=== PATIENT | female | born 1965 | race Caucasian/White ===

== ENCOUNTER 2024-04-18 08:26 | Emergency (ER) | payer MEDICAID, SELFPAY ==
[2024-04-18] VITALS (9 sets, daily range): BP systolic 116–199; BP diastolic 75–103; PULSE 85–119; RESP 16–28; TEMP 36.5–37.1; O2SAT 96–99; BMI 23.6
--- NOTE | 2024-04-18 08:33 | ECG_ITS ---
APPROVED REPORT Exam: Resting ECG HR:106 bpm ECG Measurements Heart Rate 106 AXES IL 178 P 83 QRSd 98 QRS 79 QT 343 T 72 QTc 405 Conclusion SINUS TACHYCARDIA NONSPECIFIC ST & T-WAVE ABNORMALITY Electronically signed by : ERICA STEVENS, 04/18/2024 16:08:55
--- NOTE | 2024-04-18 08:47 | XR_ITS ---
FINAL REPORT TECHNIQUE: Single view chest CLINICAL HISTORY: SOA, productive cough FINDINGS: A single view of the chest was obtained. The heart and mediastinum are within normal limits. There is calcified granulomatous disease. There is emphysema. The lungs are otherwise clear. There is no pneumothorax. Osseous structures are unremarkable. IMPRESSION: No acute cardiopulmonary process Reviewed, Interpreted and Dictated by Keon Alvarez MD Transcribed by Liss Nichols Authenticated and [facility]
[2024-04-18 08:58] LABS: Basophils % 0.3 % (0.1-2.0); Eosinophils # 0.1 K/mm3 (0.0-0.4); Eosinophils % 0.5 % (0.1-12.0); Hematocrit 46.9 % (37.0-47.0); Hemoglobin 16.3 g/dL (12.2-16.2); Lymphocytes % 6.9 % (10-50); Mean Corpuscular HGB Conc 34.7 g/dL (31.8-35.4); Mean Corpuscular Hemoglobin 29.7 pg (27.0-31.2); Mean Corpuscular Volume 85.6 fl (81-99); Monocytes # 0.5 K/mm3 (0.1-1.0); Monocytes % 3.4 % (1.7-9.3); Neutrophils # 12.4 K/mm3 (1.8-7.8); Neutrophils % 88.9 % (37.0-80.0); Platelet Count 409 K/mm3 (142-424); Red Blood Count 5.48 M/mm3 (4.20-5.40); Red Cell Distribution Width 12.8 % (11.5-17.5); White Blood Count 13.9 K/mm3 (4.8-10.8)
[2024-04-18 08:58] LABS: Coronavirus 19, PCR Not Detected (NotDetected); Influenza A, PCR Not Detected (NotDetected); Influenza B, PCR Not Detected (NotDetected)
[2024-04-18 08:59] LABS: VBG Base Excess -6.6 mmol/L (-2.4-2.3); VBG HCO3 17.5 mmol/L (23-30); VBG Oxygen Saturation 57.3 % (50-70); VBG PH 7.45 mmol/L (7.31-7.41); VBG PO2 25.3 mmol/L (28-40); VBG Total CO2 18.3 mmol/L (23-27)
[2024-04-18 09:00] LABS: MANUAL DIFFERENTIAL MANUAL DIFFERENTIAL (MANUAL DIFF)
[2024-04-18 09:00] LABS: Lactate Venous 3.6 mmol/L (0.4-2.0)
[2024-04-18 09:05] LABS: Albumin Level 5.1 g/dl (3.5-5.0); Chloride 98 mmol/L (98-107); Potassium 3.2 mmoL/L (3.5-5.1); Sodium 131 mmol/L (136-145)
[2024-04-18 09:06] LABS: Activated Partial Thrombo Time 28.7 seconds (22.8-30.6); INR 0.98 (0.9-1.1)
[2024-04-18 09:08] LABS: Alanine Aminotransferase 33 U/L (12-78); Albumin/Globulin Ratio 1.2 (1.1-1.8); Alkaline Phosphatase 149 U/L (38-126); Anion Gap 21.2 mEq/L (5-15); Aspartate Amino Transferase 29 U/L (14-36); Bilirubin,Total 1.4 mg/dl (0.2-1.3); Blood Urea Nitrogen 11 mg/dl (7-17); Calcium 10.4 mg/dl (8.4-10.2); Carbon Dioxide 15 mmol/L (22.0-30.0); Creatinine Clearance Estimated 100 mL/min (50-200); Estimated Glomerular Filt Rate 86 ml/min (>60); GFR (African American) 104 ML/MIN (>60); Globulin 4.3 g/dL (1.3-3.2); Glucose 217 mg/dl (74-100); Lipase 69 U/L (23-300); Total Protein,Serum 9.4 g/dl (6.3-8.2)
--- NOTE | 2024-04-18 09:12 | HMH.EDGENADL ---
Discharge Plan Disposition Patient Disposition: Home, Self-Care Prescriptions Prescriptions: New amoxicillin-pot clavulanate 875-125 mg tablet 1 tab PO BID 7 Days Qty: 14 0RF azithromycin 500 mg tablet 500 mg PO DAILY 2 Days Qty: 2 0RF Rx Instructions: start on day 2 of therapy ondansetron 4 mg tablet,disintegrating 4 mg PO Q6H PRN (Reason: nausea and vomiting) Qty: 10 0RF Referrals Follow up/Referrals: Provider,Referral, MD [Primary Care Provider] - See instructions Activity Restrictions/Add. Instructions Additional Instructions/Restrictions: Call your family doctor to establish care for this visit to the emergency department and schedule follow-up within 48 hours to ensure improvement. If you have any worsening of your condition or any other concerning signs or symptoms, return to the emergency department or your primary care doctor for further evaluation. If you are unable to tolerate any oral intake, appear to be getting worse, feel that you are having reactions to any medications, or have any worsening, return to the emergency department and we will take care of you. Augmentin twice daily for 7 days, azithromycin each morning for the next 2 days. Zofran as needed for nausea Clinical Impressions Clinical Impression: Pneumonia, Vomiting Print Language Print Language: Sammarinese Discharge ED Provider: Elmer Wesley General Adult HPI General Chief complaint: PAIN Stated complaint: Pain in Right shoulder down right side Time Seen by Provider: 04/18/24 08:39 Mode of Arrival: Wheelchair Source of Information: Patient Limitations: No Limitations Description of Symptoms (Recalled from ER Triage Doc. by RN): pt presents to ED with c/o head/chest congestion. pt reports left shoulder pain radiating down to hip. pt reports that pain woke her from her sleep. chest pain this am around 0700. chest congestion ongoing for the past 9 days History of Present Illness HPI narrative: Please note that above description of symptoms, in this electronic medical record under categorization of recalled from ER triage doctor by RN are reflective of an initial nursing assessment, however, is not reflective of my full history and physical exam that was personally taken and clarified. Consequentially, this preceding description of symptoms, which may include the patient's categorized chief complaint in the EMR, do not reflect my personal clinical impression, and the ultimate description of history of present illness and patient stated complaints should be deferred to this section of the note. Unless stated otherwise or congruent with this section of the note, additional signs, symptoms, or incongruence should be interpreted as inaccurate with my clinical impression. Related Data Previous Rx's ?Medication ?Instructions ?Recorded amoxicillin 875 mg-potassium 1 tab PO BID 7 days #14 tabs 04/18/24 clavulanate 125 mg tablet azithromycin 500 mg tablet 500 mg PO DAILY 2 days #2 tabs 04/18/24 ondansetron 4 mg disintegrating 4 mg PO Q6H PRN nausea and 04/18/24 tablet vomiting #10 tabs Allergies Allergy/AdvReac Type Severity Reaction Status Date / Time sumatriptan (From Imitrex) Allergy Severe Anaphylaxis Verified 04/18/24 08:41 wheat Allergy Severe Anaphylaxis Verified 04/18/24 08:41 ibuprofen Allergy Intermediate Verified 04/18/24 08:41 [facility] Disclaimer: The information contained in this section may have been updated after the patient was seen, as this information can be updated by other users. Social History Smoking Status: Never smoker alcohol intake: never current occupational status: retired Travel in the last 8 weeks: None ROS Obtained: Yes All systems reviewed & no additional complaints except as documented Physical Exam General General appearance: alert and anxious Head Head exam: atraumatic and normocephalic Eye Eye exam: Present normal appearance, PERRL and EOMI ENT ENT exam: Present mucous membranes dry Neck Neck exam: Present normal inspection, full ROM and trachea midline Respiratory Respiratory exam: Present wheezes (Isolated posterior wheezes left lower lung wells); Absent respiratory distress, stridor, accessory muscle use or prolonged expiratory phase Cardiovascular Cardiovascular exam: Present regular rate, tachycardia, normal heart sounds and other (Pulses equal symmetric in upper and lower extremities) Abdominal Exam Abdominal exam: Present soft; Absent distention, tenderness or pulsatile mass Extremities Exam Extremities exam: Absent edema Neurological Exam Neurological exam: Present alert, oriented X3, CN II-XII intact and normal gait; Absent motor sensory deficit Skin Skin exam: Present warm and dry; Absent diaphoresis or erythema Medical Decision Making Medical Records Medical records reviewed: Yes I reviewed the patient's medical records. Screening: Per USPSTF and CDC recommendations, given the prevalence of disease in our region, it is our hospital?s policy to screen for HIV and viral Hepatitis for all patients aged 18 and over and those with ongoing risk factors. Tatila Inquiry Pt receiving controlled substance: No Attila was queried for this patient: No Vital Signs: 04/18/24 08:27 04/18/24 08:31 04/18/24 10:27 Temperature 97.7 F Temperature Source Oral Pulse Rate 113 H Pulse Rate [Left Radial] 105 H Respiratory Rate 16 25 H Blood Pressure 199/103 H 196/85 H Blood Pressure [Right Arm] 199/103 H Blood Pressure Mean [Right Arm] 135 02 Sat by Pulse Oximetry 99 98 98 Oxygen Delivery Method Room Air Room Air Room Air 04/18/24 10:30 04/18/24 11:00 04/18/24 11:30 Temperature Temperature Source Pulse Rate Pulse Rate [Left Radial] Respiratory Rate 22 23 17 Blood Pressure 198/91 H 179/87 H 180/90 H Blood Pressure [Right Arm] Blood Pressure Mean [Right Arm] 02 Sat by Pulse Oximetry Oxygen Delivery Method 04/18/24 12:00 04/18/24 12:15 Temperature Temperature Source Pulse Rate 102 H 119 H Pulse Rate [Left Radial] Respiratory Rate 20 28 H Blood Pressure 188/93 H 188/93 H Blood Pressure [Right Arm] Blood Pressure Mean [Right Arm] 02 Sat by Pulse Oximetry 98 Oxygen Delivery Method Lab Data Lab Results 04/18/24 08:43: WBC 13.9 H, RBC 5.48 H, Hgb 16.3 H, Hct 46.9, MCV 85.6, MCH 29.7, MCHC 34.7, RDW 12.8, Plt Count 409, MPV 7.0 L, Neut % (Auto) 88.9 H, Lymph % (Auto) 6.9 L, [place] % (Auto) 3.4, Eos % (Auto) 0.5, Baso % (Auto) 0.3, Neut # (Auto) 12.4 H, Lymph # (Auto) 1.0, [place] # (Auto) 0.5, Eos # (Auto) 0.1, Baso # (Auto) 0.0, Total Counted 100, Neutrophils % (Manual) 84 H, Lymphocytes % (Manual) 14, Monocytes % (Manual) 2, Platelet Estimate Normal, RBC Morphology Normal, PT 11.0, INR 0.98, APTT 28.7, D-Dimer 0.57 H, Sodium 131 L, Potassium 3.2 L, Chloride 98, Carbon Dioxide 15 L, Anion Gap 21.2 H, BUN 11, Creatinine 0.70, Estimated Creat Clear 100, Estimated GFR 86, Est GFR ( Amer) 104, Glucose 217 H, Calcium 10.4 H, Total Bilirubin 1.4 H, AST 29, ALT 33, Alkaline Phosphatase 149 H, Troponin I < 0.01, Total Protein 9.4 H, Albumin 5.1 H, Globulin 4.3 H, Albumin/Globulin Ratio 1.2, Lipase 69 04/18/24 08:51: VBG pH 7.45 H, VBG pCO2 26.0 L, VBG pO2 25.3 L, VBG HCO3 17.5 L, VBG Total CO2 18.3 L, VBG O2 Saturation 57.3, VBG Base Excess -6.6 L, VBG Lactic Acid 3.6 H 04/18/24 08:53: SARS-CoV-2 (PCR) Not detected, Influenza A Untype (PCR) Not detected, Influenza Type B (PCR) Not detected 04/18/24 09:09: Urine Color Dark yellow, Urine Appearance Slightly cloudy, Urine pH 6.0, Ur Specific [place] >= 1.030, Urine Protein 1+ A, Urine Glucose (UA) Trace, Urine Ketones 3+, Urine Blood Negative, Urine Nitrate Negative, Urine Bilirubin Negative, Urine Urobilinogen 0.2, Ur Leukocyte Esterase Negative, Urine RBC None, Urine WBC Occasional, Ur Squamous Epith Cells 3-5, Urine Bacteria Trace 04/18/24 08:43 04/18/24 08:43 Orders (Tests/Meds): ED MEDICATIONS Discontinued Medications Generic Name Dose Route Start Last Admin Trade Name Freq PRN Reason Stop Dose Admin Amoxicillin/Clavulanate Potassium 1 each 04/18/24 09:56 04/18/24 10:07 Amoxicillin/Clavulanate Potassium 875/125mg Tablet PO 04/18/24 09:57 1 each ONCE ONE Administration Azithromycin 500 mg 04/18/24 09:56 04/18/24 10:07 Azithromycin 250mg Tablet PO 04/18/24 09:57 500 mg ONCE ONE Administration Lactated Ringer's 1,000 mls @ 999 mls/hr 04/18/24 09:06 04/18/24 09:21 Lactated Ringer's 1000 Ml Bag IV 04/18/24 10:06 999 mls/hr .Q1H1M ONE Administration Lactated Ringer's 1,000 mls @ 999 mls/hr 04/18/24 10:52 04/18/24 10:57 Lactated Ringer's 1000 Ml Bag IV 04/18/24 11:52 999 mls/hr .Q1H1M ONE Administration Ondansetron HCl 4 mg 04/18/24 09:25 04/18/24 09:26 Ondansetron 4mg/2ml Vial IV 04/18/24 09:26 4 mg ONCE ONE Administration Ondansetron HCl 4 mg 04/18/24 11:47 04/18/24 11:52 Ondansetron 4mg/2ml Vial IV 04/18/24 11:48 4 mg ONCE ONE Administration ORDERS Category Date Time Status POCUS Point of Care (ER Only) Stat Exams 04/18/24 08:47 Completed XR chest portable Stat Exams 04/18/24 08:47 Completed Complete Blood Count Auto Diff Stat Lab 04/18/24 08:43 Completed Comprehensive Metabolic Panel Stat Lab 04/18/24 08:43 Completed D-Dimer Stat Lab 04/18/24 08:43 Completed Lipase Stat Lab 04/18/24 08:43 Completed PT INR [Prothrombin Time INR] Stat Lab 04/18/24 08:43 Completed PTT [Activated Partial Thrombo Time] Stat Lab 04/18/24 08:43 Completed Rapid PCR Covid and Flu A/B Stat Lab 04/18/24 08:53 Completed Troponin I Q3H Lab 04/18/24 12:00 Ordered Troponin I Q3H Lab 04/18/24 15:00 Ordered Troponin I Stat Lab 04/18/24 08:43 Completed UA [Urinalysis and Microscopic] Stat Lab 04/18/24 09:09 Completed Blood Culture Stat Micro 04/18/24 09:37 Received Venous Blood Gas Stat RT 04/18/24 08:51 Completed Medical Decision Narrative: 58-year-old female with no diagnosed medical problems (also does not have or see a family physician) presenting with multiple complaints. Patient states that she has been sick for about a week with cough. Cough intermittently productive of clear to white sputum. Fevers and chills, body aches. Also having left shoulder pain. Left shoulder pain started this morning, does not radiate, mild in intensity. Patient states that she is having shortness of breath as well, shoulder pain getting worse with deep inspiration. Intermittently vomiting in response to p.o. intake. No diarrhea. No blood in her vomit, nonbilious. 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 Also has side complaint of intermittent dysuria. History was obtained via conversation with patient. On arrival, patient hemodynamically stable, alert, oriented x4, appropriate, GCS 15, moving all extremities spontaneously, pupils equal and reactive to light. Full physical exam performed and significant for fatigued appearing female no acute distress. Mildly anxious. Tachycardic, heart sounds otherwise normal with normal S1-S2 no murmurs gallops or rubs. Lungs are clear to auscultation anteriorly bilaterally, but she has isolated wheezes and inferior breath sounds on the left posteriorly. Abdomen soft, nontender, nondistended. Patient has dry mucous membranes. Differential includes bronchitis, pneumonia, pneumothorax, cystitis, pyelonephritis, pancreatitis, ACS, [place], among others. Patient placed on continuous cardiac monitoring and continuous pulse ox with initial blood pressure 199/103, heart rate 105, saturation 99% on room air. Independent interpretation of EKG shows sinus tachycardia 106 bpm. Patient does have ME downsloping and ST depressions in septal/lateral leads as well as inferior leads with no reciprocal elevations. ME 178, QRS 98, QTc 405 with normal axis. Patient was given 1 L LR for symptomatic management and correction of underlying abnormalities. Workup independently interpreted and significant for leukocytosis 14,000 with neutrophilia. Coags normal. Patient's D-dimer mildly elevated, but years criteria negative. VBG with pH 7.45/CO2 26/bicarb 17 and lactate elevated 3.6. Sodium 131, potassium 3.2 (patient declined repletion given numerous allergies), normal kidney function. Troponin negative. Lipase negative. Urinalysis with ketonuria concerning for severe dehydration. On independent interpretation of imaging, patient has left lower lobe opacities concerning for developing pneumonia. See radiology read for full review of final results. Given Augmentin and azithromycin p.o. in the emergency department, as patient wanted to be monitored after receiving these due to numerous allergies. Another liter of LR also administered. Patient was placed in observation beginning at 10 AM in order to give meds, observe and determine need for admission versus home-going. The patient was provided second liter of crystalloid, Augmentin, azithromycin while awaiting results. On reevaluation, patient nauseated and vomiting, Zofran was added. Prolonged discussion had with patient and family regarding admission versus home-going, ultimately opted for home-going and I feel this is appropriate. Total observation time 2 hours. On reevaluation, patient still resting comfortably, feels a lot better after fluids and clinically looks much better. Tissue perfusion reassessment performed within 3 hours, patient mentating, following commands, good capillary refill and hemodynamically stable. Remains similar to baseline arrival. Bedside [id number] ultrasound performed no acute cardiac abnormalities, no pericardial effusion with grossly normal activity. Given patient presentation, workup, history, this most likely represents pneumonia. Because patient at baseline without signs or symptoms of clinical decompensation, deemed appropriate for discharge. Results were relayed to patient who voiced understanding and were agreeable to outpatient management and follow up. I discussed my clinical impression with patient and answered all questions. At this time, the evidence for any other entities in the differential is insufficient to warrant any further testing or ED observation. This was explained as well. Advisory was given that persistent or worsening symptoms require further evaluation. I confirmed the understanding of this discussion. Nocturnist disclaimer Much of this encounter note is an electronic support services tech spoken language to printed text. Electronic support services tech of the spoken language may permit errors. Although I have reviewed the note, some errors may still exist. Critical Care Critical Care Time Critical Care Time: No
[2024-04-18 09:16] LABS: Microscopic, Urine URINE MICROSCOPIC (MICROSCOPIC)
[2024-04-18 09:19] LABS: Blood, Urine Negative (Negative); Glucose,Urine (UA) TRACE (Negative); Ketones,Urine 3+ (Negative); Leukocyte Esterase,Urine Negative (Negative); Nitrate,Urine Negative (Negative); Protein,Urine 1+ (Negative); Specific Gravity, Urine >= 1.030 (1.005-1.030); Urobilinogen,Urine 0.2 EU/dl (0.2)
[2024-04-18 09:20] LABS: Troponin I < 0.01 ng/ml (0.00-0.034)
[2024-04-18 09:21] LABS: Appearance,Urine Slightly Cloudy (Clear); Bilirubin,Urine Negative (Negative); Color,Urine Dark Yellow (Yellow)
[2024-04-18] MEDS: LACTATED RINGERS 1000ML 1,000 ML 999 ML IV ×2 (09:21→10:57)
[2024-04-18] MEDS: ONDANSETRON 4MG/2ML VIAL 4 MG IV ×2 (09:26→11:52)
[2024-04-18 09:28] LABS: Lymphocytes % 14 % (10-50); Monocytes % 2 % (2-9); Neutrophils % 84 % (42-76); Platelet Estimate Normal; RBC Morphology Normal; Total Cells Counted 100
[2024-04-18 09:34] LABS: Bacteria,Urine Trace /lpf; WBC,Urine Occasional #/hpf (0-3)
[2024-04-18 09:38] LABS: D-Dimer 0.57 ug/mL (0.0-0.5)
[2024-04-18] MEDS: AMOXICILLIN/CLAVULANATE POTASSIUM 875/125MG TABLET 1 EACH PO (10:07)
[2024-04-18] MEDS: AZITHROMYCIN 250MG TABLET 500 MG PO (10:07)
--- NOTE | 2024-04-18 11:59 | PC.NURSE ---
I rounded on the pt, IVF still infusing. no new complaints, call mayo in reach.
[2024-04-18 13:00] LABS: Reflex Lactic Add Lactic Reflex
[2024-04-18 13:11] LABS: Troponin I < 0.01 ng/ml (0.00-0.034)
== END 2024-04-18 12:58 | disposition home or self-care (01) ==
PROVIDERS: Emergency Provider Emergency Medicine
DX: J18.9 Pneumonia, unspecified organism (principal); R11.10 Vomiting, unspecified; M25.512 Pain in left shoulder; M25.552 Pain in left hip; R07.9 Chest pain, unspecified; R09.89 Other specified symptoms and signs involving the circulatory and respiratory systems; R09.81 Nasal congestion
CPT/HCPCS: 71045; 80053; 81001; 82803; 83690; 84484; 85007; 85025; 85027; 85378; 85610; 85730; 87040; 87636; 93005; 96361; 96374; 96375; 99284; J2405; J7120

== ENCOUNTER 2024-04-19 17:59 | Observation (INO) | payer MEDICAID, SELFPAY ==
[2024-04-19] VITALS (11 sets, daily range): BP systolic 173–230; BP diastolic 80–103; PULSE 76–104; RESP 15–24; TEMP 36.4–36.9; O2SAT 97–99; BMI 23.6; BMI 19.9
--- NOTE | 2024-04-19 18:12 | ECG_ITS ---
APPROVED REPORT Exam: Resting ECG HR:91 bpm ECG Measurements Heart Rate 91 AXES MD 198 P 67 QRSd 94 QRS 45 QT 379 T 50 QTc 428 Conclusion SINUS RHYTHM MODERATE ST DEPRESSION Electronically signed by : ERICA STEVENS, 04/19/2024 23:56:40
--- NOTE | 2024-04-19 18:22 | CT_ITS ---
PROCEDURE INFORMATION: Exam: CTA Chest With Contrast Exam date and time: 04/19/2024 7:09 PM Age: 58 years old Clinical indication: Other: Respirophasic cp, vomiting diarrhea TECHNIQUE: Imaging protocol: Computed tomographic angiography of the chest with contrast. Exam focused on the arteries. 3D rendering (Not supervised by radiologist): MIP and/or 3D reconstructed images were created by the technologist. Radiation optimization: All CT scans at this facility use at least one of these dose optimization techniques: automated exposure control; mA and/or kV adjustment per patient size (includes targeted exams where dose is matched to clinical indication); or iterative reconstruction. Contrast material: ISOVUE 370; Contrast volume: 80 ml; Contrast route: INTRAVENOUS (IV); COMPARISON: CT ANGIO CHEST PE PROTOCOL 04/19/2024 7:09 PM FINDINGS: Pulmonary arteries: Normal. No pulmonary emboli. Aorta: Unremarkable. No aortic aneurysm. No aortic dissection. Lungs: Poorly defined left posterobasilar opacity. Poorly defined right mid basilar opacity. Underlying centrilobular emphysematous changes. Benign right upper lobar calcified granuloma. Pleural spaces: Unremarkable. No pneumothorax. No pleural effusion. Heart: Unremarkable. No cardiomegaly. No pericardial effusion. Lymph nodes: Unremarkable. No enlarged lymph nodes. Bones/joints: Unremarkable. No acute fracture. Soft tissues: Unremarkable. IMPRESSION: 1. No central or segmental pulmonary arterial embolism identified. 2. Bibasilar, likely infectious/inflammatory infiltration. COMMENTS: The presence of pulmonary emphysema on CT is an independent risk factor for lung cancer. In the absence of a history or active diagnosis of lung cancer, it is recommended that this patient with emphysema be evaluated for enrollment in a low dose CT lung cancer screening program.
--- NOTE | 2024-04-19 18:23 | CT_ITS ---
PROCEDURE INFORMATION: Exam: CTA Abdomen and Pelvis With Contrast Exam date and time: 04/19/2024 7:09 PM Age: 58 years old Clinical indication: Other: Intractable n/v hematemesis TECHNIQUE: Imaging protocol: Computed tomographic angiography of the abdomen and pelvis with contrast. Exam focused on the arteries. 3D rendering (Not supervised by radiologist): MIP and/or 3D reconstructed images were created by the technologist. Radiation optimization: All CT scans at this facility use at least one of these dose optimization techniques: automated exposure control; mA and/or kV adjustment per patient size (includes targeted exams where dose is matched to clinical indication); or iterative reconstruction. Contrast material: ISO 370; Contrast volume: 80 ml; Contrast route: INTRAVENOUS (IV); COMPARISON: CT ANGIO CHEST PE PROTOCOL 04/19/2024 7:09 PM FINDINGS: Aorta: No aortic aneurysm. No aortic dissection. Atherosclerotic calcification. Celiac trunk and mesenteric arteries: No occlusion or significant stenosis. Ostial atherosclerotic calcification. Renal arteries: No occlusion or significant stenosis. Ostial atherosclerotic calcification. Right iliac arteries: No occlusion or significant stenosis. Atherosclerotic calcification. Left iliac arteries: No occlusion or significant stenosis. Ostial atherosclerotic calcification. Liver: Fatty infiltration. No mass. Gallbladder and biliary ducts: Unremarkable. No calcified stones. No ductal dilation. Pancreas: Unremarkable. No mass. No ductal dilation. Spleen: Unremarkable. No splenomegaly. Adrenal glands: Unremarkable. No mass. Kidneys and ureters: Stable bilateral cortical cysts including probable stable hyperdense cysts measuring 1.8 and 2.5 cm in left kidney. No solid mass. No hydronephrosis. Stomach and bowel: Unremarkable. No obstruction. No mucosal thickening. Appendix: No evidence of appendicitis. Intraperitoneal space: Unremarkable. No free air. No significant fluid collection. Lymph nodes: Unremarkable. No enlarged lymph nodes. Urinary bladder: Unremarkable. No mass. Reproductive: Unremarkable as visualized. Bones/joints: No acute fracture. Soft tissues: Unremarkable. IMPRESSION: 1. Unremarkable CTA. 2. Fatty liver infiltration. 3. Similar probable left renal hyperdense cysts. Can be evaluated with nonurgent ultrasound.
--- NOTE | 2024-04-19 18:25 | HMH.EDCP ---
Discharge Plan Disposition Patient Disposition: Admitted Clinical Impressions Clinical Impression: Nausea & vomiting, Sepsis, Hypokalemia Discharge ED Provider: Elmer Wesley General Chief Complaint: Shortness of Breath/Dyspnea Stated Complaint: soa Time Seen by Provider: 04/19/24 18:04 Mode of Arrival: Ambulatory Source of Information: Patient Limitations: No Limitations Description of Symptoms (Recalled from ER Triage Doc. by RN): n/v SOB left ear pain back pain with deep breathing History of Present Illness HPI narrative: Please note that above description of symptoms, in this electronic medical record under categorization of recalled from ER triage doctor by RN are reflective of an initial nursing assessment, however, is not reflective of my full history and physical exam that was personally taken and clarified. Consequentially, this preceding description of symptoms, which may include the patient's categorized chief complaint in the EMR, do not reflect my personal clinical impression, and the ultimate description of history of present illness and patient stated complaints should be deferred to this section of the note. Unless stated otherwise or congruent with this section of the note, additional signs, symptoms, or incongruence should be interpreted as inaccurate with my clinical impression. Related Data Previous Rx's ?Medication ?Instructions ?Recorded amoxicillin 875 mg-potassium 1 tab PO BID 7 days #14 tabs 04/18/24 clavulanate 125 mg tablet azithromycin 500 mg tablet 500 mg PO DAILY 2 days #2 tabs 04/18/24 ondansetron 4 mg disintegrating 4 mg PO Q6H PRN nausea and 04/18/24 tablet vomiting #10 tabs Allergies Allergy/AdvReac Type Severity Reaction Status Date / Time sumatriptan (From Imitrex) Allergy Severe Anaphylaxis Verified 04/18/24 08:41 wheat Allergy Severe Anaphylaxis Verified 04/18/24 08:41 ibuprofen Allergy Intermediate Verified 04/18/24 08:41 [facility] PFS Disclaimer: The information contained in this section may have been updated after the patient was seen, as this information can be updated by other users. Social History (Updated 04/18/24 @ 12:41 by Elmer Wesley MD) Smoking Status: Never smoker alcohol intake: never current occupational status: retired Travel in the last 8 weeks: None Have you lived/traveled outside [place] in past 30 days?: No Contact w/someone who lives/traveled outside US past 30 days?: No Exposure to someone with infectious disease in past 14 days?: No Do you have a fever (greater than 100.4 F or 38 C)?: No Have you tested positive for COVID-19: No Exposed to someone with COVID-19 in past 14 days?: No Do you have a sore throat?: No Do you have a cough?: No Do you have any weakness?: No Do you have any diarrhea?: No Are you experiencing any unusual bleeding?: No Do you have any muscle aches/pain?: No Do you have any abdominal pain?: No Are you experiencing loss of taste or smell?: No ROS Obtained: Yes All systems reviewed & no additional complaints except as documented Physical Exam General General appearance: alert Neck Neck exam: Present trachea midline Chest Chest inspection: Present normal inspection and symmetric chest wall rise Respiratory Respiratory exam: Present normal lung sounds bilaterally; Absent respiratory distress, wheezes, stridor, accessory muscle use or prolonged expiratory phase Cardiovascular Cardiovascular exam: Present regular rate, normal rhythm and other (Pulses equal and symmetric in upper and lower extremities) Extremities Exam Extremities exam: Absent edema Neurological Exam Neurological exam: Present alert, oriented X3 and CN II-XII intact Skin Skin exam: Present warm and dry; Absent cyanosis, diaphoresis or pallor HEART Score HEART Score HEART Score assessment performed?: Yes HEART Score: 2 Critical Care Critical Care Time Critical Care Time: Yes (ID) Attestation: On 04/19/24, the high probability of a clinically significant, sudden or life threatening deterioration of the following system(s) required my full and direct attention, intervention and personal management. The time I documented below is in addition to time spent performing reported procedures but includes the following listed in this critical care notation. Total Time Total Critical Care Time: 45 Medical Decision Making Medical Records Medical records reviewed: Yes I reviewed the patient's medical records. Attila Inquiry Pt receiving controlled substance: No Attila was queried for this patient: No Vital Signs Vital Signs: 04/19/24 18:12 04/19/24 18:30 04/19/24 18:41 Temperature 97.6 F Temperature Source Oral Pulse Rate 82 78 Pulse Rate [Right Radial] 104 H Respiratory Rate 18 Blood Pressure 229/97 H 208/89 H Blood Pressure [Right Arm] 191/96 H Blood Pressure Mean [Right Arm] 127 Blood Pressure Source Blood Pressure Position 02 Sat by Pulse Oximetry 97 99 99 Oxygen Delivery Method Room Air Room Air Room Air 04/19/24 19:20 04/19/24 19:31 04/19/24 19:56 Temperature Temperature Source Pulse Rate 103 H 94 H 76 Pulse Rate [Right Radial] Respiratory Rate Blood Pressure 223/100 H 230/103 H 212/97 H Blood Pressure [Right Arm] Blood Pressure Mean [Right Arm] Blood Pressure Source Blood Pressure Position 02 Sat by Pulse Oximetry 97 98 98 Oxygen Delivery Method 04/19/24 20:00 04/19/24 20:45 04/19/24 21:30 Temperature Temperature Source Pulse Rate 96 H 90 Pulse Rate [Right Radial] Respiratory Rate 18 20 15 Blood Pressure 208/93 H 207/102 H 188/90 H Blood Pressure [Right Arm] Blood Pressure Mean [Right Arm] Blood Pressure Source Blood Pressure Position 02 Sat by Pulse Oximetry 98 99 Oxygen Delivery Method 04/19/24 21:53 Temperature 97.9 F Temperature Source Oral Pulse Rate 90 Pulse Rate [Right Radial] Respiratory Rate 16 Blood Pressure 188/90 H Blood Pressure [Right Arm] Blood Pressure Mean [Right Arm] Blood Pressure Source Automatic Cuff Blood Pressure Position Supine 02 Sat by Pulse Oximetry Oxygen Delivery Method Room Air Lab Data Labs: Lab Results 04/19/24 18:08: WBC 16.7 H, RBC 5.13, Hgb 15.2, Hct 43.4, MCV 84.6, MCH 29.6, MCHC 35.0, RDW 11.6, Plt Count 491 H, MPV 8.9, Neut % (Auto) 85.2 H, Lymph % (Auto) 8.1 L, Whitman % (Auto) 5.4, Eos % (Auto) 0.1, Baso % (Auto) 0.5, Neut # (Auto) 14.2 H, Lymph # (Auto) 1.4, Whitman # (Auto) 0.9, Eos # (Auto) 0.0, Baso # (Auto) 0.1, Total Counted 100, Neutrophils % (Manual) 84 H, Band Neutrophils % 1.0, Lymphocytes % (Manual) 10, Monocytes % (Manual) 5, Platelet Estimate Slight increase, RBC Morphology Normal, PT 11.2, INR 1.00, APTT 27.6, Sodium 136, Potassium 3.0 L, Chloride 100, Carbon Dioxide 17 L, Anion Gap 22.0 H, BUN 13, Creatinine 0.70, Estimated Creat Clear 100, Estimated GFR 86, Est GFR ( Amer) 104, Glucose 207 H, Lactate 3.3 H, Calcium 10.6 H, Magnesium 2.4 H, Total Bilirubin 0.8, AST 30, ALT 37, Alkaline Phosphatase 154 H, Troponin I < 0.01, Total Protein 8.7 H, Albumin 4.7, Globulin 4.0 H, Albumin/Globulin Ratio 1.2, Lipase 62 04/19/24 18:08 04/19/24 18:08 Response Orders (Tests/Meds): ED MEDICATIONS Generic Name Dose Route Start Last Admin Trade Name Freq PRN Reason Stop Dose Admin Potassium Chloride/Water 100 mls @ 100 mls/hr 04/19/24 19:45 04/19/24 20:51 Potassium Chloride 10meq/100ml Ivpb IV 04/19/24 22:44 100 mls/hr Q1H DAHIANA Administration Sodium Chloride 1,000 mls @ 50 mls/hr 04/19/24 20:00 04/19/24 19:53 Sod Chlor 0.9% 1000ml Bag IV 05/19/24 19:59 50 mls/hr .Q20H DAHIANA Administration Ceftriaxone Sodium 2 gm/ 100 mls @ 200 mls/hr 04/19/24 21:34 Sodium Chloride IV 04/19/24 22:03 ONCE ONE Discontinued Medications Generic Name Dose Route Start Last Admin Trade Name Freq PRN Reason Stop Dose Admin Hydralazine HCl 10 mg 04/19/24 20:09 04/19/24 20:34 Hydralazine 20mg/Ml Vial IV 04/19/24 20:10 10 mg ONCE ONE Administration Sodium Chloride 1,000 mls @ 999 mls/hr 04/19/24 18:22 04/19/24 18:32 Sod Chlor 0.9% 1000ml Bag IV 04/19/24 19:22 999 mls/hr .Q1H1M ONE Administration Iopamidol 80 ml 04/19/24 19:09 04/19/24 19:10 Iopamidol-370 (76%);100ml Bottle IV 04/19/24 19:10 80 ml ONCE ONE Administration Metoprolol Tartrate 5 mg 04/19/24 19:24 04/19/24 19:31 Metoprolol Tartrate 5mg/5ml Vial IV 04/19/24 19:25 5 mg ONCE ONE Administration Promethazine HCl 12.5 mg 04/19/24 18:22 04/19/24 18:33 Promethazine Hcl 25mg/Ml 1ml Vial IV 04/19/24 18:23 12.5 mg ONCE ONE Administration Promethazine HCl 12.5 mg 04/19/24 20:08 04/19/24 20:10 Promethazine Hcl 25mg/Ml 1ml Vial IV 04/19/24 20:09 12.5 mg ONCE ONE Administration Sodium Chloride 25 ml 04/19/24 18:22 04/19/24 18:32 Sodium Chloride 0.9% 25ml Bag IV 04/19/24 18:23 25 ml ONCE ONE Administration Sodium Chloride 50 ml 04/19/24 19:09 04/19/24 19:10 0.9 % Sodium Chloride 50 Ml Vial IV 04/19/24 19:10 50 ml ONCE ONE Administration Sodium Chloride 10 ml 04/19/24 19:09 04/19/24 19:10 Sodium Chloride 0.9% 10ml Syr (Rad Only) IV 04/19/24 19:10 10 ml ONCE ONE Administration Sodium Chloride 25 ml 04/19/24 20:08 04/19/24 20:09 Sodium Chloride 0.9% 25ml Bag IV 04/19/24 20:09 25 ml ONCE ONE Administration ORDERS Category Date Time Status CT angio abdomen pelvis Stat Cat Scan 04/19/24 18:[address] angio chest PE protocol Stat Cat Scan 04/19/24 18:22 Completed Complete Blood Count Auto Diff Stat Lab 04/19/24 18:08 Completed Comprehensive Metabolic Panel Stat Lab 04/19/24 18:08 Completed Diarrhea 6-11 Panel, Cdiff PCR Stat Lab 04/19/24 19:41 Ordered Lactic Acid Stat Lab 04/19/24 18:08 Completed Lipase Stat Lab 04/19/24 18:08 Completed Magnesium Stat Lab 04/19/24 18:08 Completed PT INR [Prothrombin Time INR] Stat Lab 04/19/24 18:08 Completed PTT [Activated Partial Thrombo Time] Stat Lab 04/19/24 18:08 Completed Troponin I Q3H Lab 04/19/24 21:30 Ordered Troponin I Q3H Lab 04/20/24 00:30 Ordered Troponin I Stat Lab 04/19/24 18:08 Completed MDM Narrative Medical Decision Narrative: 58-year-old female who was just here yesterday. No reported medical history, states that she has been sick for about a week plus with nonproductive cough. Came in to see me yesterday on 04/18. At that time, workup significant for developing left lower lobe opacity consistent with pneumonia and patient was trialed on oral antibiotics prior to being sent home and given fluids. Patient states that she went home, was initially feeling a little better, but has not been able to tolerate any p.o. intake since shortly after returning home. Feeling worse, intermittently having abdominal cramping, vomiting and diarrhea. Vomiting diarrhea mostly associated with trying to take p.o. intake whether liquid or solid. States that is nonbilious, but intermittently bloody with dark red blood. No blood in her stool. States that she is no longer having left-sided chest/shoulder pain, but is now having bilateral posterior upper back pain that does not radiate and is respirophasic, made worse with deep breaths. No syncope, neurologic deficits, headache, vision changes, or any other concerning history. States she has not been able to tolerate any p.o. intake including antibiotics, so came in for probable admission. History was obtained via conversation with patient. On arrival, patient hemodynamically stable, alert, oriented x4, appropriate, GCS 15, moving all extremities spontaneously, pupils equal and reactive to light. Full physical exam performed and significant for uncomfortable appearing female no acute distress. Lungs are clear bilaterally. Cardiac exam normal. Nontachycardic on my exam. Abdomen soft, nontender, nondistended. No overlying skin changes. Patient nontachypneic and fatigued, but otherwise is well-appearing. Differential includes pneumonia, bronchitis, gastroenteritis, medication intolerance, pancreatitis, ACS, FL, dissection, PE, pneumothorax, among others. Patient was given Phenergan, fluids for symptomatic management and correction of underlying abnormalities. Patient placed on continuous cardiac monitoring and continuous pulse ox with initial blood pressure 191/90, heart rate for, saturation 97% on room air. Sinus rhythm 91 bpm with SC 198, QRS 94, QTc 428. No acute ischemic change. Normal axis on independent interpretation of EKG. Workup independently interpreted and significant for leukocytosis 16.7 up from yesterday around 13. Coags normal. Potassium 3.0 lower than yesterday. Lactate 3.3, magnesium 2.4. Troponin negative, lipase negative.. On independent interpretation of imaging, patient has no acute intrathoracic or intra-abdominal abnormality other than what appears to be gastroenteritis and left lower lobe pneumonia which was seen yesterday on chest x-ray. She does have chronic intramural aortic thrombus, but no evidence of acute dissection or PE. See radiology read for full review of final results. Patient can use to be hypertensive, given 5 mg IV metoprolol. Help with heart rate, did not necessarily help with blood pressure. Patient was given 10 mg IV hydralazine and blood pressure improved into the 180s, patient symptoms persisted. Necessitating another 12.5 mg IV Phenergan for nausea. Given patient has worsening labs, pneumonia on CT, 2 g ceftriaxone was ordered as well. Blood cultures pending. Stool panel also pending. Fluids continued, hospitalist was contacted and interactive discussion was had, patient to be admitted for further definitive management. Pediatric Nephrologist disclaimer Much of this encounter note is an electronic account review specialist spoken language to printed text. Electronic account review specialist of the spoken language may permit errors. Although I have reviewed the note, some errors may still exist.
[2024-04-19] MEDS: SODIUM CHLORIDE 0.9% 25ML BAG 25 ML IV ×2 (18:32→20:09)
[2024-04-19] MEDS: 0.9 % SODIUM CHLORIDE 1000ML 1,000 ML 999 ML IV (18:32)
[2024-04-19] MEDS: PROMETHAZINE HCL 25MG/ML 1ML VIAL 12.5 MG IV ×2 (18:33→20:10)
[2024-04-19 18:34] LABS: Albumin Level 4.7 g/dl (3.5-5.0); Chloride 100 mmol/L (98-107); Sodium 136 mmol/L (136-145)
[2024-04-19 18:37] LABS: Alanine Aminotransferase 37 U/L (12-78); Albumin/Globulin Ratio 1.2 (1.1-1.8); Alkaline Phosphatase 154 U/L (38-126); Aspartate Amino Transferase 30 U/L (14-36); Basophils % 0.5 % (0.1-2.0); Bilirubin,Total 0.8 mg/dl (0.2-1.3); Blood Urea Nitrogen 13 mg/dl (7-17); Calcium 10.6 mg/dl (8.4-10.2); Carbon Dioxide 17 mmol/L (22.0-30.0); Creatinine Clearance Estimated 100 mL/min (50-200); Eosinophils % 0.1 % (0.1-12.0); Estimated Glomerular Filt Rate 86 ml/min (>60); GFR (African American) 104 ML/MIN (>60); Glucose 207 mg/dl (74-100); Hematocrit 43.4 % (37.0-47.0); Hemoglobin 15.2 g/dL (12.2-16.2); Lipase 62 U/L (23-300); Lymphocytes % 8.1 % (10-50); Mean Corpuscular Hemoglobin 29.6 pg (27.0-31.2); Mean Corpuscular Volume 84.6 fl (81-99); Mean Platelet Volume 8.9 fl (7.4-10.4); Monocytes % 5.4 % (1.7-9.3); Neutrophils % 85.2 % (37.0-80.0); Platelet Count 491 K/mm3 (142-424); Red Blood Count 5.13 M/mm3 (4.20-5.40); Red Cell Distribution Width 11.6 % (11.5-17.5); Total Protein,Serum 8.7 g/dl (6.3-8.2); White Blood Count 16.7 K/mm3 (4.8-10.8)
[2024-04-19 18:38] LABS: Basophils # 0.1 K/mm3 (0-0.2); Lymphocytes # 1.4 K/mm3 (0.7-4.5); Magnesium 2.4 mg/dl (1.6-2.3); Monocytes # 0.9 K/mm3 (0.1-1.0); Neutrophils # 14.2 K/mm3 (1.8-7.8)
[2024-04-19 18:40] LABS: Activated Partial Thrombo Time 27.6 seconds (22.8-30.6); Prothrombin Time 11.2 seconds (10.1-12.5)
[2024-04-19 18:41] LABS: Lactic Acid 3.3 mmol/L (0.7-2.1)
[2024-04-19 18:42] LABS: MANUAL DIFFERENTIAL MANUAL DIFFERENTIAL (MANUAL DIFF)
[2024-04-19 18:53] LABS: Troponin I < 0.01 ng/ml (0.00-0.034)
[2024-04-19] MEDS: 0.9 % SODIUM CHLORIDE 50 ML VIAL IV (19:10)
[2024-04-19] MEDS: IOPAMIDOL-370 (76%);100ML BOTTLE 80 ML IV (19:10)
[2024-04-19] MEDS: SODIUM CHLORIDE 0.9% 10ML SYR (RAD ONLY) 10 ML IV (19:10)
--- NOTE | 2024-04-19 19:28 | PC.NURSE ---
I spoke with Joss SHELTON confirming there is no wheat containing product in the metoprolol.
[2024-04-19] MEDS: METOPROLOL TARTRATE 5MG/5ML VIAL 5 MG IV (19:31)
[2024-04-19] MEDS: KCl 10mEq/100ml 100 ML 100 MEQ IV ×3 (19:49→22:05)
[2024-04-19 19:52] LABS: Lymphocytes % 10 % (10-50); Monocytes % 5 % (2-9); Neutrophils % 84 % (42-76); Platelet Estimate Slight Increase; RBC Morphology Normal; Total Cells Counted 100
[2024-04-19] MEDS: 0.9 % SODIUM CHLORIDE 1000ML 1,000 ML 50 ML IV (19:53)
--- NOTE | 2024-04-19 20:17 | PC.NURSE ---
I spoke to Joss SHELTON to confirn there is no wheat containing products in IV hydralazine.
[2024-04-19] MEDS: HYDRALAZINE 20MG/ML VIAL 10 MG IV (20:34)
--- NOTE | 2024-04-19 22:13 | EXP.HP ---
History of Present Illness *Admission Date: 04/19/24 *Reason for visit:: Nausea, vomiting, diarrhea, chest discomfort, elevated glucose *History of present illness: 58-year-old without past medical history due to lack of medical appointments over last several years presents with nausea, vomiting, diarrhea, chest discomfort worse over the last 2 to 3 days. Patient presented to emergency room yesterday complaining of chest discomfort, diagnosed with pneumonia, and discharged home. Patient presented to hospital today stating that she is unable to tolerate adequate oral intake over past 24 hours. Reports intractable vomiting since yesterday. Also states she has suffered from diarrhea which has occurred all day. Describes chest discomfort as 3/10, achy, pleuritic, worse with breathing. Denies history of diabetes, but presents with metabolic acidosis and GLU 207. Highest temperature over past 3 days is 100.0 per patient, and patient also endorses chills x 3 days. States that she lives with 5 grandkids get sick frequently. LA 3.3. Patient's daughter present with patient in emergency room and collaborates patient's story. WBC 16.7, CTA chest abdomen pelvis shows signs of fatty liver, possible bilateral lung infection without pulmonary embolus. CMP labs showed hypokalemia, hypochloremia, hyponatremia likely related to dehydration. [facility] Disclaimer: The information contained in this section may have been updated after the patient was seen, as this information can be updated by other users. Medical History (Updated 04/19/24 @ 23:02 by Ziggy Singleton MD) COPD (chronic obstructive pulmonary disease) Social History (Updated 04/19/24 @ 22:46 by Marnie Mcfarland RN) Smoking Status: Never smoker alcohol intake: never current occupational status: disabled Travel in the last 8 weeks: None Meds Home Medications and Allergies Home Medications ?Medication ?Instructions ?Recorded ?Confirmed ?Type amoxicillin 875 mg-potassium 1 tab PO BID 7 days #14 tabs 04/18/24 Rx clavulanate 125 mg tablet azithromycin 500 mg tablet 500 mg PO DAILY 2 days #2 tabs 04/18/24 Rx ondansetron 4 mg disintegrating 4 mg PO Q6H PRN nausea and 04/18/24 Rx tablet vomiting #10 tabs New Prescriptions to Start Prescriptions: Allergies Allergy/AdvReac Type Severity Reaction Status Date / Time sumatriptan (From Imitrex) Allergy Intermediate Stiffness Verified 04/19/24 22:39 ibuprofen AdvReac Intermediate Vomiting Verified 04/19/24 22:39 wheat AdvReac Unknown Verified 04/19/24 22:39 allergy reaction Exam Data for Last 24 hours Vital signs and Labs for Last 24 Hours: Temp Pulse Resp BP Pulse Ox O2 Del Method 97.9 F 90 16 188/90 H 99 Room Air 04/19/24 21:53 04/19/24 21:53 04/19/24 21:53 04/19/24 21:53 04/19/24 21:30 04/19/24 21:53 Laboratory Results - last 24 hr 04/19/24 18:08: WBC 16.7 H, RBC 5.13, Hgb 15.2, Hct 43.4, MCV 84.6, MCH 29.6, MCHC 35.0, RDW 11.6, Plt Count 491 H, MPV 8.9, Neut % (Auto) 85.2 H, Lymph % (Auto) 8.1 L, [place] % (Auto) 5.4, Eos % (Auto) 0.1, Baso % (Auto) 0.5, Neut # (Auto) 14.2 H, Lymph # (Auto) 1.4, [place] # (Auto) 0.9, Eos # (Auto) 0.0, Baso # (Auto) 0.1, Total Counted 100, Neutrophils % (Manual) 84 H, Band Neutrophils % 1.0, Lymphocytes % (Manual) 10, Monocytes % (Manual) 5, Platelet Estimate Slight increase, RBC Morphology Normal, PT 11.2, INR 1.00, APTT 27.6, Sodium 136, Potassium 3.0 L, Chloride 100, Carbon Dioxide 17 L, Anion Gap 22.0 H, BUN 13, Creatinine 0.70, Estimated Creat Clear 100, Estimated GFR 86, Est GFR ( Amer) 104, Glucose 207 H, Lactate 3.3 H, Calcium 10.6 H, Magnesium 2.4 H, Total Bilirubin 0.8, AST 30, ALT 37, Alkaline Phosphatase 154 H, Troponin I < 0.01, Total Protein 8.7 H, Albumin 4.7, Globulin 4.0 H, Albumin/Globulin Ratio 1.2, Lipase 62 I & O for Last 24 hours: Intake & Output 04/16/24 04/17/24 04/18/24 12/17/24 23:59 23:59 23:59 23:59 Weight 72.575 kg Constitutional Constitutional: mild distress, chronically ill appearing and disheveled *Routine HEENT Exam Head: Present normocephalic Eye: Present EOMI ENT: Present mucous membranes dry *Routine Neck Exam Neck: Present supple and full ROM *Routine Respiratory Exam Respiratory: Present decreased breath sounds and diminished air movement *Routine Cardiovascular Exam Cardiovascular: Present RRR, Normal S1 and Normal S2 *Routine Abdominal Exam Abdominal: Present soft and normoactive bowel sounds *Routine Rectal Exam Rectal:: deferred *Routine Genitalia Exam Genitalia:: deferred *Routine Extremities Exam Extremities: Present full ROM and normal capillary refill *Routine Skin Exam Skin: Present intact *Routine Neurological Exam Neurological: Present alert and oriented X3 Assessment and Plan *Assessment and plan (1) Acute hyperglycemia: Status: Acute Category: Medical Code(s): R73.9 - Hyperglycemia, unspecified (2) Gastroenteritis: Status: Acute Category: Medical Code(s): K52.9 - Noninfective gastroenteritis and colitis, unspecified (3) Pneumonia: Status: Acute Category: Medical Code(s): J18.9 - Pneumonia, unspecified organism (4) Systemic inflammatory response syndrome: Status: Acute Category: Medical Code(s): R65.10 - Systemic inflammatory response syndrome (SIRS) of non-infectious origin without acute organ dysfunction (5) Hypokalemia: Status: Acute Category: Medical Code(s): E87.6 - Hypokalemia (6) Nausea & vomiting: Status: Acute Category: Medical Code(s): R11.2 - Nausea with vomiting, unspecified (7) Vomiting: Status: Acute Category: Medical Code(s): R11.10 - Vomiting, unspecified Plan 58-year-old without past medical history due to lack of medical appointments over last several years presents with nausea, vomiting, diarrhea, chest discomfort worse over the last 2 to 3 days. WBC 16.7, CTA chest abdomen pelvis shows signs of possible bilateral lung infection. CMP labs showed hypokalemia, hypochloremia, hyponatremia likely related to dehydration. Problems as listed below: Imaging/labwork reviewed at time of admission: ? CTA chest/abdomen/pelvis: Fatty liver, no pulmonary embolus, bibasilar infiltrates likely infection ?WBC 16.7, Hgb 15.2, platelet 491, K3.0, bicarb 17, BUN 13, CR 0.7, GLU 207, LA 3.3, Mg 2.4, alk phos 154, AST 30, ALT 37, ALB 4.7, lipase 62 Possible undiagnosed diabetes rule out mild to moderate DKA: ? Patient presents with glucose 207, metabolic acidosis. Patient has not visited PCP in years, and I am extremely suspicious that patient suffering from undiagnosed diabetes. I ordered UA to check for ketones. I also ordered serum acetone. Will start ACHS Accu-Cheks, and start sliding scale insulin. If hemoglobin A1c elevated, we will also start basal Lantus overnight. Nausea, vomiting, diarrhea likely due to gastroenteritis: ? Start 750 mg IV Levaquin daily for empirical bacterial gastroenteritis coverage. Diarrhea antigen panel ordered. Also ordered stool culture. Compazine 10 mg IV every 6 as needed nausea or vomiting. MIVF as noted in hypokalemia section. Will also order blood cultures. SIRS with pneumonia present on admission: ? IV Levaquin, I ordered sputum culture and blood cultures, incentive spirometer every 2 hours, DuoNebs 3 mL inhaled Q6 while awake, albuterol 2.5 mg inhaled every 4 as needed shortness of breath. Hypokalemia secondary to vomiting/diarrhea: Hypertension: Patient's blood pressure 173/80 meeting patient likely suffering from undiagnosed hypertension. PPx Lovenox subcutaneous
--- NOTE | 2024-04-19 22:20 | PC.NURSE ---
Patient arrived to floor via wheelchair from ED at 22:18.
[2024-04-19 22:27] LABS: Troponin I < 0.01 ng/ml (0.00-0.034)
[2024-04-19 22:29] LABS: Reflex Lactic Add Lactic Reflex
[2024-04-19 22:59] LABS: Adenovirus,PCR Not Detected (NotDetected); Bordetella Pertussis Not Detected (NotDetected); Chlamydophila Pneumoniae, PCR Not Detected (NotDetected); Coronavirus 19, PCR Not Detected (NotDetected); Coronavirus 229E Not Detected (NotDetected); Coronavirus NL63 Not Detected (NotDetected); Coronavirus OC43 Not Detected (NotDetected); Coronovirus HKU1,PCR Not Detected (NotDetected); Human Metapneumovirus Not Detected (NotDetected); Influenza A, PCR Not Detected (NotDetected); Influenza AH1, 2009 Not Detected (NotDetected); Influenza AH1, PCR Not Detected (NotDetected); Influenza AH3,PCR Not Detected (NotDetected); Influenza B, PCR Not Detected (NotDetected); Mycoplasma Pneumoniae, PCR Not Detected (NotDetected); Parainfluenza 1, PCR Not Detected (NotDetected); Parainfluenza 2, PCR Not Detected (NotDetected); Parainfluenza 3, PCR Not Detected (NotDetected); Parainfluenza 4, PCR Not Detected (NotDetected); Respiratory Syncytial Virus Not Detected (NotDetected); Rhinovirus/Enterovirus Not Detected (NotDetected)
[2024-04-19 23:02] LABS: Acetone, Serum (Rapid) Small (None Detect)
[2024-04-19 23:15] LABS: Lactic Acid Follow Up (RFLX 1) 1.4 mmol/L (0.7-2.1)
[2024-04-19 23:17] LABS: Procalcitonin 0.352 ng/mL (0.0-2.0)
[2024-04-19] MEDS: CEFTRIAXONE SODIUM 2 GM in 0.9 % SODIUM CHLORIDE 100 ML IV (23:24)
[2024-04-19] MEDS: 0.9% NaCl w/40mEq KCL 1,000 ML 150 ML IV (23:29)
[2024-04-19 23:37] LABS: Hemoglobin A1C 7.5 % (4.0-6.0)
[2024-04-19 23:45] LABS: Microscopic, Urine URINE MICROSCOPIC (MICROSCOPIC)
[2024-04-19] MEDS: PROCHLORPERAZINE 10MG/2ML VIAL 10 MG IV (23:45)
[2024-04-19 23:47] LABS: Appearance,Urine CLEAR (Clear); Bilirubin,Urine Negative (Negative); Blood, Urine Negative (Negative); Color,Urine YELLOW (Yellow); Glucose,Urine (UA) 1+ (Negative); Ketones,Urine 3+ (Negative); Leukocyte Esterase,Urine Negative (Negative); Nitrate,Urine Negative (Negative); Protein,Urine Negative (Negative); Specific Gravity, Urine 1.025 (1.005-1.030); Urobilinogen,Urine 0.2 EU/dl (0.2)
[2024-04-19 23:54] LABS: Bacteria,Urine Trace /lpf; Squamous Epithelial Cell,Urine Occasional #/hpf (0-5)
[2024-04-20] VITALS (12 sets, daily range): BP systolic 151–207; BP diastolic 80–123; PULSE 78–110; RESP 15–18; TEMP 36.4–37.3; O2SAT 95–98; BMI 20.4
[2024-04-20] MEDS: LEVOFLOXACIN/D5W 750 MG/150 ML 750 MG/150 ML PIGGYBACK 100 MG IV ×2 (00:17→21:45)
[2024-04-20] MEDS: IPRATROPIUM/ALBUTEROL 3 ML NEB IH ×5 (00:45→23:10)
[2024-04-20 01:16] LABS: Troponin I < 0.01 ng/ml (0.00-0.034)
[2024-04-20] MEDS: IRBESARTAN 75MG TABLET 75 MG PO ×2 (02:09→18:40)
[2024-04-20] MEDS: INSULIN GLARGINE 100 UNITS/ML 10ML VIAL 12 UNIT SUBCUT ×2 (02:38→20:22)
[2024-04-20 02:46] LABS: POC Glucose,Bedside 175 (70-110)
[2024-04-20 03:41] LABS: Troponin I < 0.01 ng/ml (0.00-0.034)
[2024-04-20] MEDS: ACETAMINOPHEN 325MG TAB 650 MG PO (04:07)
[2024-04-20] MEDS: HYDRALAZINE 20MG/ML VIAL 10 MG IV (04:07)
[2024-04-20] MEDS: hydroCHLOROthiazide 25MG TABLET 25 MG PO (05:26)
[2024-04-20] MEDS: PROCHLORPERAZINE 10MG/2ML VIAL 10 MG IV ×2 (05:47→12:03)
[2024-04-20 06:18] LABS: POC Glucose,Bedside 136 (70-110)
[2024-04-20] MEDS: ENOXAPARIN 40MG/0.4ML SYRINGE 40 MG SUBCUT (08:29)
[2024-04-20] MEDS: 0.9% NaCl w/40mEq KCL 1,000 ML 150 ML IV ×2 (08:30→16:53)
--- NOTE | 2024-04-20 08:41 | HMH.PHAINT1 ---
Pharmacy Intervention Comments: MEDICATION RECONCILIATION COMPLETED ON PATIENT USING EXTERNAL FILL HISTORY FROM PHARMACY. -NATHALIE NICOLE, MARLENAD
[2024-04-20 08:49] LABS: Chloride 105 mmol/L (98-107); Sodium 130 mmol/L (136-145)
[2024-04-20 08:50] LABS: Potassium 3.2 mmoL/L (3.5-5.1)
--- NOTE | 2024-04-20 08:51 | CA_ITS ---
FINAL REPORT CLINICAL HISTORY: HTN, COPD, Ex-smoker, DM, Pneumonia COMPARISON: None FINDINGS: DOPPLER RENAL VESSELS HISTORY: Hypertension . FINDINGS: Intrarenal resistive indices on the right are 0.74-0.79, normal . Intrarenal resistive indices on the left are 0.71-0.84, normal . Right main renal artery systolic velocity: 277 cm/sec. Aortic-right renal artery flow velocity ratio: 2.6 COMMENT: The renal artery velocity is suggestive of 50% or greater stenosis of the right renal artery. Left main renal artery systolic velocity: 286 cm/sec. Aortic-left renal artery flow velocity ratio: 2.7 COMMENT: The renal artery velocities suggestive of 50% or greater stenosis of the left renal artery. IMPRESSION: The bilateral renal artery velocities are suggestive of 50% or greater stenosis. Recommend CTA or MRA for further evaluation. CTA or gadolinium-enhanced MR may be considered as a more sensitive exam. Alternatively noncontrast MRI may be considered for assessing main renal arteries for stenosis as a more sensitive exam if the patient has renal insufficiency. Reviewed, Interpreted and Dictated by Keon Alvarez MD Transcribed by Zenobia García Authenticated and [facility]
[2024-04-20 08:52] LABS: Anion Gap 15.2 mEq/L (5-15); Blood Urea Nitrogen 9 mg/dl (7-17); Carbon Dioxide 13 mmol/L (22.0-30.0); Creatinine Clearance Estimated 101 mL/min (50-200); Estimated Glomerular Filt Rate 103 ml/min (>60); GFR (African American) 124 ML/MIN (>60)
[2024-04-20 08:53] LABS: Glucose 186 mg/dl (74-100); Magnesium 1.9 mg/dl (1.6-2.3)
[2024-04-20 09:04] LABS: Hematocrit 35.7 % (37.0-47.0); Mean Corpuscular HGB Conc 35.6 g/dL (31.8-35.4); Mean Corpuscular Hemoglobin 29.7 pg (27.0-31.2); Mean Corpuscular Volume 83.4 fl (81-99); Platelet Count 390 K/mm3 (142-424); Red Blood Count 4.28 M/mm3 (4.20-5.40); Red Cell Distribution Width 11.7 % (11.5-17.5); White Blood Count 12.6 K/mm3 (4.8-10.8)
[2024-04-20 09:05] LABS: Basophils # 0.1 K/mm3 (0-0.2); Basophils % 0.4 % (0.1-2.0); Lymphocytes # 1.1 K/mm3 (0.7-4.5); Lymphocytes % 9.1 % (10-50); Mean Platelet Volume 8.8 fl (7.4-10.4); Monocytes % 7.6 % (1.7-9.3); Neutrophils # 10.3 K/mm3 (1.8-7.8); Neutrophils % 81.9 % (37.0-80.0); Troponin I < 0.01 ng/ml (0.00-0.034)
[2024-04-20 09:07] LABS: Hemoglobin 12.7 g/dL (12.2-16.2)
--- NOTE | 2024-04-20 10:31 | DIET.NUTRFU ---
RD saw patient and reviewed gluten free diet and items available. Offered to provide gluten free bread and patient declined at this time. She typically eats bread free meals, like meat/potato and veggies. She has been practicing gluten free for 12 plus years. Patient is also newly dx DM- educational material provided- carb counting/label reading and contact information for further follow-up. Willing to give up soda, encouraged to switch to water. She currently does not see PCP.
[2024-04-20] MEDS: humaLOG 100 UNITS/ML 10ML VIAL (SSI) SUBCUT ×3 (11:10→20:22)
[2024-04-20] MEDS: ALPRAZolam 0.25MG TABLET 0.25 MG PO (11:14)
[2024-04-20 11:38] LABS: POC Glucose,Bedside 167 (70-110)
[2024-04-20] MEDS: SODIUM CHLORIDE 3% 15ML NEB 3 ML IH (12:00)
[2024-04-20 17:05] LABS: POC Glucose,Bedside 166 (70-110)
--- NOTE | 2024-04-20 18:00 | PC.NURSE ---
patient is a/ox4 and remains on RA. she has c/o nausea once this shift, treated per JUL. she has not been tolerating diet well due to nausea. unable to obtain stool panel and sputum culture this shift. patient is aware and specimen cups are in room. notified MD of potassium level, electrolyte replacement protocol is now in place. no further requests at this time. call light within reach
[2024-04-20] MEDS: POTASSIUM CHLORIDE 20MEQ TAB 40 MEQ PO ×2 (18:18→21:44)
--- NOTE | 2024-04-20 18:24 | P.PN_ITS ---
Subjective *Date: 04/20/24 *Time: 22:18 Interval history: Patient feeling a bit better today. Stable on room air. Nausea improving. Eating small portions. Stable on room air. Afebrile. Electrolytes improving. Denies chest pain. Blood pressure still elevated. Abdominal bruit on exam. Medical Exam Vital signs and Labs for Last 24 Hours: Vital Signs Temp Pulse Pulse Resp BP BP Pulse Ox 04/20/24 18:12 110 H 04/20/24 18:12 86 04/20/24 16:00 97.7 F 110 H 15 201/88 H 95 04/20/24 15:00 04/20/24 13:00 04/20/24 12:01 78 18 04/20/24 11:32 96 H 04/20/24 11:32 102 H 04/20/24 11:00 04/20/24 09:00 04/20/24 08:00 04/20/24 08:00 97.7 F 97 H 15 151/80 H 98 04/20/24 06:46 04/20/24 06:24 99 H 04/20/24 06:24 105 H 04/20/24 05:25 109 H 154/123 H 04/20/24 05:00 04/20/24 04:00 99 F 94 H 16 207/88 H 98 04/20/24 03:00 04/20/24 01:00 04/20/24 00:49 88 04/20/24 00:49 92 H 04/20/24 00:00 97.5 F L 86 16 168/95 H 98 04/19/24 23:00 04/19/24 22:30 04/19/24 22:26 98.5 F 88 24 173/80 H 97 04/19/24 21:53 97.9 F 90 16 188/90 H 04/19/24 21:30 90 15 188/90 H 99 04/19/24 20:45 96 H 20 207/102 H 98 04/19/24 20:00 18 208/93 H 04/19/24 19:56 76 212/97 H 98 04/19/24 19:31 94 H 230/103 H 98 04/19/24 19:20 103 H 223/100 H 97 04/19/24 18:41 78 208/89 H 99 04/19/24 18:30 82 229/97 H 99 O2 Del Method 04/20/24 18:12 04/20/24 18:12 04/20/24 16:00 Room Air 04/20/24 15:00 Room Air 04/20/24 13:00 Room Air 04/20/24 12:01 04/20/24 11:32 04/20/24 11:32 04/20/24 11:00 Room Air 04/20/24 09:00 Room Air 04/20/24 08:00 Room Air 04/20/24 08:00 Room Air 04/20/24 06:46 Room Air 04/20/24 06:24 04/20/24 06:24 04/20/24 05:25 04/20/24 05:00 Room Air 04/20/24 04:00 Room Air 04/20/24 03:00 Room Air 04/20/24 01:00 Room Air 04/20/24 00:49 04/20/24 00:49 04/20/24 00:00 Room Air 04/19/24 23:00 Room Air 04/19/24 22:30 Room Air 04/19/24 22:26 Room Air 04/19/24 21:53 Room Air 04/19/24 21:30 04/19/24 20:45 04/19/24 20:00 04/19/24 19:56 04/19/24 19:31 04/19/24 19:20 04/19/24 18:41 Room Air 04/19/24 18:30 Room Air Intake and Output 04/20/24 04/20/24 04/20/24 07:59 15:59 23:59 Intake Total 792 / 1332 540 / 1332 Output Total 0 / 0 0 / 0 Balance 792 / 1332 540 / 1332 Intake: Intake, Oral Amount 540 / 540 Intake, Total IV Amount 792 / 792 0.9% NaCl w/40mEq KCL 1,000 ml 792 / 792 @ 150 mls/hr IV .[id number] [facility] Rx# :[id number] Output: Output, Urine Amount 0 / 0 0 / 0 Other: Number of Unmeasured Voids 1 1 Weight 62.624 kg 62.6 kg Patient Weight 04/20/24 23:59 Weight 62.6 kg Laboratory Results - last 24 hr 04/19/24 18:08: WBC 16.7 H, RBC 5.13, Hgb 15.2, Hct 43.4, MCV 84.6, MCH 29.6, MCHC 35.0, RDW 11.6, Plt Count 491 H, MPV 8.9, Neut % (Auto) 85.2 H, Lymph % (Auto) 8.1 L, [place] % (Auto) 5.4, Eos % (Auto) 0.1, Baso % (Auto) 0.5, Neut # (Auto) 14.2 H, Lymph # (Auto) 1.4, [place] # (Auto) 0.9, Eos # (Auto) 0.0, Baso # (Auto) 0.1, Total Counted 100, Neutrophils % (Manual) 84 H, Band Neutrophils % 1.0, Lymphocytes % (Manual) 10, Monocytes % (Manual) 5, Platelet Estimate Slight increase, RBC Morphology Normal, PT 11.2, INR 1.00, APTT 27.6, Sodium 136, Potassium 3.0 L, Chloride 100, Carbon Dioxide 17 L, Anion Gap 22.0 H, BUN 13, Creatinine 0.70, Estimated Creat Clear 100, Estimated GFR 86, Est GFR ( Amer) 104, Glucose 207 H, Hemoglobin A1c 7.5 H, Lactate 3.3 H, Calcium 10.6 H, Magnesium 2.4 H, Total Bilirubin 0.8, AST 30, ALT 37, Alkaline Phosphatase 154 H , Troponin I < 0.01, Total Protein 8.7 H, Albumin 4.7, Globulin 4.0 H, Albumin/Globulin Ratio 1.2, Lipase 62, Procalcitonin 0.352, Acetone Level Small 04/19/24 21:57: Troponin I < 0.01 04/19/24 22:26: Urine Color Yellow, Urine Appearance Clear, Urine pH 6.0, Ur Specific [place] 1.025, Urine Protein Negative, Urine Glucose (UA) 1+, Urine Ketones 3+, Urine Blood Negative, Urine Nitrate Negative, Urine Bilirubin Negative, Urine Urobilinogen 0.2, Ur Leukocyte Esterase Negative, Urine RBC None, Urine WBC None, Ur Squamous Epith Cells Occasional, Urine Bacteria Trace 04/19/24 22:45: Lactate 1.4 04/19/24 22:55: Chlamy pneumoniae PCR Not detected, Adenovirus (PCR) Not detected, B. pertussis DNA (PCR) Not detected, Coronavirus OC43 (PCR) Not detected, Coronavirus HKU1 (PCR) Not detected, Coronavirus 229E (PCR) Not detected, SARS-CoV-2 (PCR) Not detected, Coronavirus NL63 (PCR) Not detected, Human Metapneumovir PCR Not detected, Influenza A (H1) PCR Not detected, Influ A (H1N1/09) PCR Not detected, Influenza A (H3) PCR Not detected, Influenza Type A (PCR) Not detected, Influenza Type B (PCR) Not detected, M. pneumoniae (PCR) Not detected, Parainfluenza 1 (PCR) Not detected, Parainfluenza 2 (PCR) Not detected, Parainfluenza 3 (PCR) Not detected, Parainfluenza 4 (PCR) Not detected, RSV (PCR) Not detected, Entero/Rhino (PCR) Not detected 04/20/24 00:36: Troponin I < 0.01 04/20/24 02:36: POC Glucose 175 H 04/20/24 03:05: Troponin I < 0.01 04/20/24 05:54: POC Glucose 136 H 04/20/24 08:32: WBC 12.6 H, RBC 4.28, Hgb 12.7 D, Hct 35.7 L, MCV 83.4, MCH 29.7, MCHC 35.6 H, RDW 11.7, Plt Count 390, MPV 8.8, Neut % (Auto) 81.9 H, Lymph % (Auto) 9.1 L, [place] % (Auto) 7.6, Eos % (Auto) 0.0 L, Baso % (Auto) 0.4, Neut # (Auto) 10.3 H, Lymph # (Auto) 1.1, [place] # (Auto) 1.0, Eos # (Auto) 0.0, Baso # (Auto) 0.1, Sodium 130 L, Potassium 3.2 L, Chloride 105, Carbon Dioxide 13 L, Anion Gap 15.2 H, BUN 9 D, Creatinine 0.60, Estimated Creat Clear 101, Estimated GFR 103, Est GFR ( Amer) 124, Glucose 186 H, Calcium 9.0, Magnesium 1.9 D, Troponin I < 0.01 04/20/24 11:10: POC Glucose 167 H 04/20/24 16:54: POC Glucose 166 H I & O for Labs for Last 24 Hours: Intake & Output 04/17/24 04/18/24 04/19/24 04/20/24 23:59 23:59 23:59 23:59 Intake Total 1332 / 1332 Output Total 0 / 0 Balance 1332 / 1332 Weight 61.144 kg 62.6 kg Constitutional: Present no acute distress, thin and cooperative Head: Present atraumatic and normocephalic ENT: Present normal exam Respiratory: Present normal respiratory effort; Absent rhonchi, wheezes or crackles Cardiac: Present Reg Rate and Rhythm and No Murmur GI: Present soft and normal bowel sounds; Absent distention or tenderness Comments:: Abdominal bruit on exam Extremities: Present normal inspection and full ROM; Absent edema Skin: Present intact; Absent erythema Neuro: Present Grossly Intact, alert, awake, oriented x 3 and moves all extremities Assessment and Plan *Assessment and plan (1) Newly diagnosed diabetes: Status: Acute Category: Medical Code(s): E11.9 - Type 2 diabetes mellitus without complications (2) Hypertension: Status: Acute Category: Medical Code(s): I10 - Essential (primary) hypertension (3) Renal artery stenosis: Status: Acute Category: Medical Code(s): I70.1 - Atherosclerosis of renal artery (4) Acute hyperglycemia: Status: Acute Category: Medical Code(s): R73.9 - Hyperglycemia, unspecified (5) Gastroenteritis: Status: Acute Category: Medical Code(s): K52.9 - Noninfective gastroenteritis and colitis, unspecified (6) Pneumonia: Status: Acute Category: Medical Code(s): J18.9 - Pneumonia, unspecified organism (7) Systemic inflammatory response syndrome: Status: Acute Category: Medical Code(s): R65.10 - Systemic inflammatory response syndrome (SIRS) of non-infectious origin without acute organ dysfunction (8) Hypokalemia: Status: Acute Category: Medical Code(s): E87.6 - Hypokalemia (9) Nausea & vomiting: Status: Acute Category: Medical Code(s): R11.2 - Nausea with vomiting, unspecified (10) Vomiting: Status: Acute Category: Medical Code(s): R11.10 - Vomiting, unspecified Plan 58-year-old without past medical history due to lack of medical appointments over last several years presents with nausea, vomiting, diarrhea, chest discomfort worse over the last 2 to 3 days. WBC 16.7, CTA chest abdomen pelvis shows signs of possible bilateral lung infection. CMP labs showed hypokalemia, hypochloremia, hyponatremia likely related to dehydration. Showing some improvement. Responding to insulin. Blood pressure showing slight improvement. Continues to require inpatient management. Problems addressed as follows: New diagnosis of diabetes DKA, resolving -A1c 7.5. Morning glucose 186. Will continue basal insulin with 12 units nightly. Sliding scale insulin with fingersticks ACHS. -Nutrition counseling patient on dietary adjustments for diabetes. Hypertension Abdominal bruit -Seeing slow improvement/response to hypertensive medication. Increase blood pressure regimen to carvedilol 6.25 mg twice daily, HCTZ 25 mg daily, increase irbesartan to 150 mg daily. -Given presence of bruit on exam, abdominal ultrasound/renal duplex obtained. Noted to have bilateral renal artery stenosis greater than 50%. -Cardiology consulted to assist with blood pressure and renal artery stenosis. N.p.o. at midnight pending potential for arteriogram Nausea, vomiting, diarrhea likely due to gastroenteritis: ? Start 750 mg IV Levaquin daily for empirical bacterial gastroenteritis coverage. Diarrhea antigen panel ordered. Also ordered stool culture. Compazine 10 mg IV every 6 as needed nausea or vomiting. MIVF as noted in hypokalemia section. Will also order blood cultures. -White count remains elevated at 12.6. Hemoglobin 12.7. Repeat CBC, CMP, magnesium ordered for the morning. Kidney function normal with BUN 9, creatinine 0.6. SIRS with pneumonia present on admission: ? IV Levaquin, I ordered sputum culture and blood cultures, incentive spirometer every 2 hours, DuoNebs 3 mL inhaled Q6 while awake, albuterol 2.5 mg inhaled every 4 as needed shortness of breath. Hypokalemia secondary to vomiting/diarrhea: Hypertension: Patient's blood pressure 173/80 meeting patient likely suffering from undiagnosed hypertension. PPx Lovenox subcutaneous Full code
[2024-04-20 19:06] LABS: Anion Gap 17.1 mEq/L (5-15); Blood Urea Nitrogen 8 mg/dl (7-17); Calcium 9.3 mg/dl (8.4-10.2); Carbon Dioxide 17 mmol/L (22.0-30.0); Chloride 100 mmol/L (98-107); Creatinine Clearance Estimated 121 mL/min (50-200); Estimated Glomerular Filt Rate 127 ml/min (>60); GFR (African American) 153 ML/MIN (>60); Glucose 181 mg/dl (74-100); Potassium 3.1 mmoL/L (3.5-5.1); Sodium 131 mmol/L (136-145)
[2024-04-20] MEDS: CARVEDILOL 6.25MG TABLET 6.25 MG PO (20:22)
[2024-04-20 20:51] LABS: POC Glucose,Bedside 163 (70-110)
--- NOTE | 2024-04-20 22:44 | CA_ITS ---
APPROVED REPORT EXAM: Comprehensive 2D, Doppler, and color-flow Echocardiogram Postal [employer] Clerk: MANNY Martinez, RVS Ht: 5 ft 8 in Wt: 134lbs BSA: 1.72 BP: 188/90 mmHg Rhythm: Elevated heart rate Indications: Pneumonia, COPD, CP, New-DKA, HTN Echo Enhancing Agent Comments: Limited windows due to Lung impedence and hyperventillation 2D Dimensions Left Atrium 2.58 cm F: 2.7 - 3.8 LA Volume 35.50 mL LA Volume Index 20.52 mL/m2 (M/F) 16-34 EF AP4 62.70 % GL Strain -15.0 % M-Mode Dimensions RVDd 2.71 cm (0.9-2.6) LA Diam 3.13 cm (1.9-4.0) LVDd 3.98 cm (3.5-5.7) LVDs 2.24 cm (3.5-5.7) IVSd 1.27 cm (0.6-1.1) PWd 0.87 cm (0.6-1.1) EF (Teich) 75.40% EPSs 0.44 cm FS 43.70% EDV (Teich) 69.20 mL TAPSE 1.87 (<1.7) ESV (Teich) 17.00 mL LV Diastology E Decel Time 150 (160-240 msec) E/A Ratio 0.8 MED A' 15.50 cm/s LAT A' 13.90 cm/s Aortic Valve DEA Index 1.11 cm2/m2 AoV Peak Terrell. 190.0 (50-130 cm/s) AO Peak GR. 14.40 mmHg AO Mean GR. 7.00 (<5 mmHg) AO VTI 32.9 (18-25 cm) DEA (VTI) 1.97 (2.5-4.5 cm2) Mitral Valve MV E Max Terrell. 94.0 (40-130 cm/s) MV A Velocity 113.0 (40-130 cm/s) E/A Ratio 0.84 MV PHT 44.0 ms Tricuspid Valve TR P. Velocity 217.00 cm/s Left Ventricle The left ventricle is normal size. The left ventricular systolic function is normal. The left ventricular ejection fraction is within the normal range. There is normal left ventricular wall thickness. There is normal LV segmental wall motion. The left ventricular diastolic function is normal. LVEF is 65-70%. Right Ventricle The right ventricle is normal size. The right ventricular systolic function is normal. Atria The left atrium size is normal. The right atrium size is normal. There is no Doppler evidence of interatrial shunt. Aortic Valve The aortic valve is mildly thickened. There is no hemodynamically significant aortic valvular stenosis. No aortic regurgitation is present. Mitral Valve The mitral valve is normal in structure. No evidence of mitral valve stenosis. There is no mitral valve regurgitation noted. Tricuspid Valve Tricuspid valve is grossly normal in structure and function. Trace tricuspid regurgitation. There is insufficient TR jet to estimate RVSP. Pulmonic Valve The pulmonary valve is normal in structure. Trace pulmonic regurgitation. Great Vessels The aortic root is normal in size. The ascending aorta is not well-visualized. IVC is normal in size and collapses >50% with inspiration. Pericardium Small, anterior pericardial effusion is present. The largest pocket measures 0.5 cm in diastole. No echo indications of tamponade. Other Information Study Quality: Fair Conclusion Normal biventricular systolic function. No significant valvular stenosis or regurgitation. Small, anterior pericardial effusion is present. The largest pocket measures 0.5 cm in diastole. No echo indications of tamponade. Electronically signed by : Angelica Saldaña MD 04/20/2024 10:28:09
--- NOTE | 2024-04-20 22:46 | PC.NURSE ---
Patient's rectal temp now 98.8, bella paw removed and warm blankets given to patient
[2024-04-21 04:00] VITALS: BP 150/78; PULSE 93; RESP 16; TEMP 37; O2SAT 96; BMI 20.2
--- NOTE | 2024-04-21 05:06 | PC.NURSE ---
Patient alert and oriented x4 this shift. Tolerating room air well. No complaints of N/V/D this shift. Patient still unable to leave stool or sputum sample. Patient tried to eat applesauce before bed and only ate one bite and stated she's just doesn't have an appetite. Tolerating ice water well. NPO at midnight per Jaquelin's note/order. No needs expressed this shift. Administered IV antibiotics per JUL. Patient ambulating to/from restroom independently. Call light within reach.
[2024-04-21] MEDS: IPRATROPIUM/ALBUTEROL 3 ML NEB IH ×2 (05:49→13:31)
[2024-04-21 05:50] VITALS: PULSE 120
[2024-04-21 06:34] LABS: POC Glucose,Bedside 127 (70-110)
[2024-04-21 06:57] LABS: Chloride 103 mmol/L (98-107); Potassium 3.7 mmoL/L (3.5-5.1); Sodium 129 mmol/L (136-145)
[2024-04-21 07:00] LABS: Anion Gap 12.7 mEq/L (5-15); Blood Urea Nitrogen 10 mg/dl (7-17); Calcium 9.7 mg/dl (8.4-10.2); Carbon Dioxide 17 mmol/L (22.0-30.0); Creatinine Clearance Estimated 100 mL/min (50-200); Estimated Glomerular Filt Rate 103 ml/min (>60); GFR (African American) 124 ML/MIN (>60); Glucose 143 mg/dl (74-100); Magnesium 2.1 mg/dl (1.6-2.3)
[2024-04-21 07:17] LABS: Hematocrit 38.4 % (37.0-47.0); Hemoglobin 13.8 g/dL (12.2-16.2); Mean Corpuscular HGB Conc 35.9 g/dL (31.8-35.4); Mean Corpuscular Hemoglobin 29.8 pg (27.0-31.2); Mean Corpuscular Volume 82.9 fl (81-99); Red Blood Count 4.63 M/mm3 (4.20-5.40); White Blood Count 11.6 K/mm3 (4.8-10.8)
[2024-04-21 07:18] LABS: Basophils % 0.3 % (0.1-2.0); Eosinophils % 0.3 % (0.1-12.0); Lymphocytes # 1.7 K/mm3 (0.7-4.5); Mean Platelet Volume 8.7 fl (7.4-10.4); Monocytes # 1.1 K/mm3 (0.1-1.0); Monocytes % 9.8 % (1.7-9.3); Neutrophils # 8.5 K/mm3 (1.8-7.8); Neutrophils % 73.3 % (37.0-80.0); Platelet Count 464 K/mm3 (142-424); Red Cell Distribution Width 11.7 % (11.5-17.5)
[2024-04-21 07:46] VITALS: BP 166/88; PULSE 97; RESP 16; TEMP 36.8; O2SAT 98
[2024-04-21] MEDS: CARVEDILOL 6.25MG TABLET 6.25 MG PO (08:24)
[2024-04-21] MEDS: IRBESARTAN 150MG TAB 150 MG PO (08:25)
[2024-04-21] MEDS: ENOXAPARIN 40MG/0.4ML SYRINGE 40 MG SUBCUT (08:25)
[2024-04-21] MEDS: hydroCHLOROthiazide 25MG TABLET 25 MG PO (08:25)
[2024-04-21 13:32] VITALS: PULSE 78; PULSE 80
--- NOTE | 2024-04-21 14:26 | P.DS_ITS ---
General Admission date:: 04/19/24 HPI HPI HPI: 58-year-old without past medical history due to lack of medical appointments over last several years presents with nausea, vomiting, diarrhea, chest discomfort worse over the last 2 to 3 days. Patient presented to emergency room yesterday complaining of chest discomfort, diagnosed with pneumonia, and discharged home. Patient presented to hospital today stating that she is unable to tolerate adequate oral intake over past 24 hours. Reports intractable vomiting since yesterday. Also states she has suffered from diarrhea which has occurred all day. Describes chest discomfort as 3/10, achy, pleuritic, worse with breathing. Denies history of diabetes, but presents with metabolic acidosis and GLU 207. Highest temperature over past 3 days is 100.0 per patient, and patient also endorses chills x 3 days. States that she lives with 5 grandkids get sick frequently. LA 3.3. Patient's daughter present with patient in emergency room and collaborates patient's story. WBC 16.7, CTA chest abdomen pelvis shows signs of fatty liver, possible bilateral lung infection without pulmonary embolus. CMP labs showed hypokalemia, hypochloremia, hyponatremia likely related to dehydration. Hospital Course Hospital Course Hospital Course: 58-year-old without past medical history due to lack of medical appointments over last several years presents with nausea, vomiting, diarrhea, chest discomfort worse over the last 2 to 3 days. WBC 16.7, CTA chest abdomen pelvis shows signs of possible bilateral lung infection. CMP labs showed hypokalemia, hypochloremia, hyponatremia likely related to dehydration. Showing some improvement. Responding to insulin. Blood pressure showing slight improvement. Continues to require inpatient management. Problems addressed as follows: #New diagnosis of diabetes #DKA, resolving ? DKA resolved with fluids and insulin drip. ? A1c 7.5. Does not need insulin at this time. ? Discharged with metformin 500 mg twice daily. ? Will follow-up with PCP in 2 weeks. Counseled on nutrition. #Hypertension #Abdominal bruit ? Initial blood pressures 200s over 100s, improved with carvedilol 6.25 mg twice daily, HCTZ 25 mg daily, increase irbesartan to 150 mg daily. - Given presence of bruit on exam, abdominal ultrasound/renal duplex obtained. Noted to have bilateral renal artery stenosis greater than 50%. - Cardiology consulted, plan on outpatient angiogram. ? Will follow-up with cardiology within 2 weeks #Nausea, vomiting, diarrhea likely due to gastroenteritis ? Self resolved over hospital course. #SIRS with pneumonia present on admission ? Discharged with Levaquin for 3 more days. Exam Data for Last 24 hours Vital signs and Labs for Last 24 Hours: Temp Pulse Resp BP Pulse Ox O2 Del Method 98.3 F 80 16 166/88 H 98 Room Air 04/21/24 07:46 04/21/24 13:32 04/21/24 07:46 04/21/24 07:46 04/21/24 07:46 04/21/24 13:00 Laboratory Results - last 24 hr 04/20/24 16:54: POC Glucose 166 H 04/20/24 18:45: Sodium 131 L, Potassium 3.1 L, Chloride 100, Carbon Dioxide 17 L , Anion Gap 17.1 H, BUN 8, Creatinine 0.50 L, Estimated Creat Clear 121, Estimated GFR 127, Est GFR ( Amer) 153 D, Glucose 181 H, Calcium 9.3 04/20/24 20:15: POC Glucose 163 H 04/21/24 06:26: POC Glucose 127 H 04/21/24 06:30: WBC 11.6 H, RBC 4.63, Hgb 13.8, Hct 38.4, MCV 82.9, MCH 29.8, MCHC 35.9 H, RDW 11.7, Plt Count 464 H, MPV 8.7, Neut % (Auto) 73.3, Lymph % (Auto) 15.0, [place] % (Auto) 9.8 H, Eos % (Auto) 0.3, Baso % (Auto) 0.3, Neut # (Auto) 8.5 H, Lymph # (Auto) 1.7, [place] # (Auto) 1.1 H, Eos # (Auto) 0.0, Baso # (Auto) 0.0, Sodium 129 L, Potassium 3.7, Chloride 103, Carbon Dioxide 17 L, Anion Gap 12.7, BUN 10, Creatinine 0.60, Estimated Creat Clear 100, Estimated GFR 103, Est GFR ( Amer) 124, Glucose 143 H D, Calcium 9.7, Magnesium 2.1 D I & O for Last 24 hours: Intake & Output 04/18/24 04/19/24 04/20/24 04/21/24 23:59 23:59 23:59 23:59 Intake Total 2571 270 / 270 Output Total 0 / 0 0 / 0 Balance 2571 270 / 270 Weight 61.144 kg 62.6 kg 62.188 kg Microbiology Reports for the Last 24 Hours: Microbiology 04/19/24 22:26 Urine,Clean Catch Urine Culture - Final No growth. 04/19/24 22:45 Blood Blood Culture - Preliminary NO GROWTH AFTER 24 HOURS 04/19/24 22:45 Blood Blood Culture - Preliminary NO GROWTH AFTER 24 HOURS Constitutional Constitutional: no acute distress *Routine HEENT Exam Head: Present normocephalic Eye: Present EOMI and PERRL ENT: Present mucous membranes moist *Routine Neck Exam Neck: Present supple; Absent lymphadenopathy *Routine Respiratory Exam Respiratory: Present CTA bilaterally *Routine Cardiovascular Exam Cardiovascular: Present RRR *Routine Abdominal Exam Abdominal: Present soft and normoactive bowel sounds; Absent tenderness *Routine Extremities Exam Extremities: Absent cyanosis, clubbing or edema *Routine Skin Exam Skin: Present warm; Absent rash *Routine Neurological Exam Neurological: Present alert and oriented X3 Results Data Completed and Pending Labs on day of discharge: Labs from last 24 hours 04/21/24 04/21/24 04/20/24 06:30 06:26 20:15 WBC 11.6 H RBC 4.63 Hgb 13.8 Hct 38.4 MCV 82.9 MCH 29.8 MCHC 35.9 H RDW 11.7 Plt Count 464 H MPV 8.7 Neut % (Auto) 73.3 Lymph % (Auto) 15.0 [place] % (Auto) 9.8 H Eos % (Auto) 0.3 Baso % (Auto) 0.3 Neut # (Auto) 8.5 H Lymph # (Auto) 1.7 [place] # (Auto) 1.1 H Eos # (Auto) 0.0 Baso # (Auto) 0.0 Sodium 129 L Potassium 3.7 Chloride 103 Carbon Dioxide 17 L Anion Gap 12.7 BUN 10 Creatinine 0.60 Estimated Creat Clear 100 Estimated GFR 103 Est GFR ( Amer) 124 Glucose 143 H D POC Glucose 127 H 163 H Calcium 9.7 Magnesium 2.1 D 04/20/24 04/20/24 18:45 16:54 WBC RBC Hgb Hct MCV MCH MCHC RDW Plt Count MPV Neut % (Auto) Lymph % (Auto) [place] % (Auto) Eos % (Auto) Baso % (Auto) Neut # (Auto) Lymph # (Auto) [place] # (Auto) Eos # (Auto) Baso # (Auto) Sodium 131 L Potassium 3.1 L Chloride 100 Carbon Dioxide 17 L Anion Gap 17.1 H BUN 8 Creatinine 0.50 L Estimated Creat Clear 121 Estimated GFR 127 Est GFR ( Amer) 153 D Glucose 181 H POC Glucose 166 H Calcium 9.3 Magnesium Preliminary micro results at discharge 04/19/24 22:45 Blood Culture - Preliminary Blood NO GROWTH AFTER 24 HOURS 04/19/24 22:45 Blood Culture - Preliminary Blood NO GROWTH AFTER 24 HOURS DS: Diagnosis Discharge Diagnosis (1) Newly diagnosed diabetes: Status: Acute Code(s): E11.9 - Type 2 diabetes mellitus without complications (2) Hypertension: Status: Acute Code(s): I10 - Essential (primary) hypertension (3) Renal artery stenosis: Status: Acute Code(s): I70.1 - Atherosclerosis of renal artery (4) Acute hyperglycemia: Status: Acute Code(s): R73.9 - Hyperglycemia, unspecified (5) Gastroenteritis: Status: Acute Code(s): K52.9 - Noninfective gastroenteritis and colitis, unspecified (6) Pneumonia: Status: Acute Code(s): J18.9 - Pneumonia, unspecified organism (7) Systemic inflammatory response syndrome: Status: Acute Code(s): R65.10 - Systemic inflammatory response syndrome (SIRS) of non-infectious origin without acute organ dysfunction (8) Hypokalemia: Status: Acute Code(s): E87.6 - Hypokalemia (9) Nausea & vomiting: Status: Acute Code(s): R11.2 - Nausea with vomiting, unspecified (10) Vomiting: Status: Acute Code(s): R11.10 - Vomiting, unspecified Meds Home Medications and Allergies Home Medications ?Medication ?Instructions ?Recorded ?Confirmed ?Type ondansetron 4 mg disintegrating 4 mg PO Q6HP PRN nausea and 04/20/24 04/20/24 History tablet vomiting carvedilol 6.25 mg tablet 6.25 mg PO BID 30 days #60 tabs 04/21/24 Rx hydrochlorothiazide 25 mg tablet 25 mg PO DAILY 30 days #30 tabs 04/21/24 Rx irbesartan 150 mg tablet 150 mg PO DAILY 30 days #30 tabs 04/21/24 Rx levofloxacin 750 mg tablet 750 mg PO DAILY 3 days #3 tabs 04/21/24 Rx metformin 500 mg tablet 500 mg PO BID #60 tabs 04/21/24 Rx New Prescriptions to Start Prescriptions: carvedilol Ejatif,Valeriano hydrochlorothiazide Molly,Valeriano irbesartan Ejbienvenidojasmin,Valeriano levofloxacin Ejatif,Valeriano metformin Ejatif,Valeriano Allergies Allergy/AdvReac Type Severity Reaction Status Date / Time sumatriptan (From Imitrex) Allergy Intermediate Stiffness Verified 04/19/24 22:39 ibuprofen AdvReac Intermediate Vomiting Verified 04/19/24 22:39 wheat AdvReac Unknown Verified 04/19/24 22:39 allergy reaction Discharge Plan Disposition Patient Disposition: Home, Self-Care Condition: Fair Follow up Plan Follow up with: Marj Cox APRN [Nurse Practitioner] - 05/02/24 11:30 am (In the [place] office: Address: [address] [place] [address] phone number: [phone]) Prescriptions/Medication Reconciliation: New carvedilol 6.25 mg Tablet 6.25 mg PO BID 30 Days Qty: 60 0RF hydrochlorothiazide 25 mg Tablet 25 mg PO DAILY 30 Days Qty: 30 0RF irbesartan 150 mg Tablet 150 mg PO DAILY 30 Days Qty: 30 0RF levofloxacin 750 mg tablet 750 mg PO DAILY 3 Days Qty: 3 0RF metformin 500 mg tablet 500 mg PO BID Qty: 60 0RF Continued ondansetron 4 mg tablet,disintegrating 4 mg PO Q6HP PRN (Reason: nausea and vomiting) Discontinued amoxicillin-pot clavulanate 875-125 mg tablet 1 tab PO BID 7 Days Qty: 14 0RF azithromycin 500 mg tablet 500 mg PO DAILY 2 Days Qty: 2 0RF Rx Instructions: start on day 2 of therapy Problem Reconciliation Problems Reviewed?: Yes Patient Discharge Instructions Patient Instructions: How to Check Your Blood Glucose, DI for Pneumonia -- Adult, DI for Diabetes Type 2, DI for Hypokalemia, DI for Nausea -- Adult, DI for Vomiting -- Adult Print Language: [place] Providers Primary Care Provider: Provider,Referral Admit Provider: Ziggy Singleton Attending Provider: Ziggy Singleton
--- NOTE | 2024-04-21 14:36 | P.CONCA_ITS ---
History of Present Illness History of Present Illness Consult date: 04/21/24 Requesting physician: Ziggy Singleton Consult reason: hypertension Chief complaint: Shortness of breath and vomiting History of present illness: 58-year-old white female without known cardiovascular disease who has not seen a physician in many years. Patient admitted with pneumonia, systemic inflammatory response syndrome, gastroenteritis, newly diagnosed diabetes with A1c of 7.5, hypertension. During workup CTA of abdomen showed renal cyst so a renal duplex was performed which shows bilateral greater than 50% renal artery stenosis. We were consulted to evaluate this in the setting of accelerated hypertension with blood pressures greater than 220 here. Patient states she does not check her blood pressure at home and is unsure what it typically runs. She denies any known prior cardiac issues. Her creatinine is normal. EKG shows sinus rhythm with nonspecific ST depression. On admission she was started on irbesartan 150 mg daily, Coreg to 6.25 mg twice daily, hydrochlorothiazide 25 mg daily. Her last 2 blood pressure readings are 150 and 166 systolic. She denies chest pain. I discussed these test results and findings with patient as well as her risk for underlying ASCVD. She is agreeable to medications and would like an office visit to evaluate further. Of note, patient states she has anaphylactic allergy to aspirin. [facility] Disclaimer: The information contained in this section may have been updated after the patient was seen, as this information can be updated by other users. Medical History COPD (chronic obstructive pulmonary disease) Surgical History History of hysterectomy Family History Other No significant family history Social History Smoking Status: Never smoker alcohol intake: never substance use type: marijuana current occupational status: disabled Travel in the last 8 weeks: None Have you lived/traveled outside US in past 30 days?: No Contact w/someone who lives/traveled outside US past 30 days?: No Exposure to someone with infectious disease in past 14 days?: No Do you have a fever (greater than 100.4 F or 38 C)?: No Have you tested positive for COVID-19: No Exposed to someone with COVID-19 in past 14 days?: No Do you have a sore throat?: No Do you have a cough?: No Do you have any weakness?: No Are you experiencing any nausea/vomitting?: Yes Do you have any diarrhea?: Yes Are you experiencing any unusual bleeding?: No Do you have any muscle aches/pain?: No Do you have any abdominal pain?: No Are you experiencing loss of taste or smell?: No Review of Systems Constitutional Constitutional: Reports fatigue and Reports weakness Eyes Eyes: Denies loss of vision ENT Ears, Nose, Mouth, and Throat: Denies hearing loss and Denies vertigo *Cardiovascular Cardiovascular: Denies chest pain, Reports dyspnea and Denies syncope *Respiratory Respiratory: Denies cough and Reports dyspnea *Gastrointestinal Gastrointestinal: Denies change in stool character, Denies nausea and Reports vomiting *Musculoskeletal Musculoskeletal: Denies muscle weakness Integumentary/Breasts Skin/Breast: Denies changing lesions *Neurologic Neurologic: Denies loss of vision, Denies syncope, Denies vertigo and Reports weakness Endocrine Endocrine: Reports fatigue Exam Data for Last 24 hours Vital signs and Labs for Last 24 Hours: Temp Pulse Resp BP Pulse Ox O2 Del Method 98.3 F 80 16 166/88 H 98 Room Air 04/21/24 07:46 04/21/24 13:32 04/21/24 07:46 04/21/24 07:46 04/21/24 07:46 04/21/24 13:00 Laboratory Results - last 24 hr 04/20/24 16:54: POC Glucose 166 H 04/20/24 18:45: Sodium 131 L, Potassium 3.1 L, Chloride 100, Carbon Dioxide 17 L , Anion Gap 17.1 H, BUN 8, Creatinine 0.50 L, Estimated Creat Clear 121, Estimated GFR 127, Est GFR ( Amer) 153 D, Glucose 181 H, Calcium 9.3 04/20/24 20:15: POC Glucose 163 H 04/21/24 06:26: POC Glucose 127 H 04/21/24 06:30: WBC 11.6 H, RBC 4.63, Hgb 13.8, Hct 38.4, MCV 82.9, MCH 29.8, MCHC 35.9 H, RDW 11.7, Plt Count 464 H, MPV 8.7, Neut % (Auto) 73.3, Lymph % (Auto) 15.0, [place] % (Auto) 9.8 H, Eos % (Auto) 0.3, Baso % (Auto) 0.3, Neut # (Auto) 8.5 H, Lymph # (Auto) 1.7, [place] # (Auto) 1.1 H, Eos # (Auto) 0.0, Baso # (Auto) 0.0, Sodium 129 L, Potassium 3.7, Chloride 103, Carbon Dioxide 17 L, Anion Gap 12.7, BUN 10, Creatinine 0.60, Estimated Creat Clear 100, Estimated GFR 103, Est GFR ( Amer) 124, Glucose 143 H D, Calcium 9.7, Magnesium 2.1 D I & O for Last 24 hours: Intake & Output 04/18/24 04/19/24 04/20/24 04/21/24 23:59 23:59 23:59 23:59 Intake Total 2572 / 2572 270 / 270 Output Total 0 / 0 0 / 0 Balance 2572 / 2572 270 / 270 Weight 134 lb 12.8 oz 138 lb 0.15 oz 137 lb 1.6 oz Microbiology Reports for the Last 24 Hours: Microbiology 04/19/24 22:26 Urine,Clean Catch Urine Culture - Final No growth. 04/19/24 22:45 Blood Blood Culture - Preliminary NO GROWTH AFTER 24 HOURS 04/19/24 22:45 Blood Blood Culture - Preliminary NO GROWTH AFTER 24 HOURS Constitutional Constitutional: no acute distress and cooperative *Routine HEENT Exam Eye: Present PERRL *Routine Respiratory Exam Respiratory: Present CTA bilaterally; Absent accessory muscle use, wheezes or crackles *Routine Cardiovascular Exam Cardiovascular: Present RRR, Normal S1 and Normal S2; Absent murmur, gallop or rubs *Routine Abdominal Exam Abdominal: Present soft; Absent tenderness *Routine Extremities Exam Extremities: Present pulses intact; Absent cyanosis or edema *Routine Skin Exam Skin: Present intact; Absent erythema or wounds *Routine Neurological Exam Neurological: Present alert and oriented X3 Routine Psychiatric Exam Psychiatric: Present cooperative Meds Home Medications and Allergies Home Medications ?Medication ?Instructions ?Recorded ?Confirmed ?Type ondansetron 4 mg disintegrating 4 mg PO Q6HP PRN nausea and 04/20/24 04/20/24 History tablet vomiting carvedilol 6.25 mg tablet 6.25 mg PO BID 30 days #60 tabs 04/21/24 Rx hydrochlorothiazide 25 mg tablet 25 mg PO DAILY 30 days #30 tabs 04/21/24 Rx irbesartan 150 mg tablet 150 mg PO DAILY 30 days #30 tabs 04/21/24 Rx levofloxacin 750 mg tablet 750 mg PO DAILY 3 days #3 tabs 04/21/24 Rx New Prescriptions to Start Prescriptions: carvedilol Molly,Valeriano hydrochlorothiazide Chandrajasmin,Valeriano irbesartan Chandrajasmin,Valeriano levofloxacin Chandrajasmin,Valeriano Allergies Allergy/AdvReac Type Severity Reaction Status Date / Time sumatriptan (From Imitrex) Allergy Intermediate Stiffness Verified 04/19/24 22:39 ibuprofen AdvReac Intermediate Vomiting Verified 04/19/24 22:39 wheat AdvReac Unknown Verified 04/19/24 22:39 allergy reaction Assessment and Plan *Assessment and plan (1) Renal artery stenosis: Status: Acute Category: Medical Code(s): I70.1 - Atherosclerosis of renal artery (2) Hypertension: Status: Acute Category: Medical Code(s): I10 - Essential (primary) hypertension (3) Systemic inflammatory response syndrome: Status: Acute Category: Medical Code(s): R65.10 - Systemic inflammatory response syndrome (SIRS) of non-infectious origin without acute organ dysfunction Plan Renal Artery Stenosis - new dx this admission - incidental finding on Renal duplex, >50% bilateral - normal Cr - continue ARB, BB, HCTZ - Pt declines ASA - hx of rash/throat swelling - add statin - will check outpatient angiogram - can discuss at office visit. Pt would like to recover from acute illness first. Htn - cont irbesartan, coreg, hctz - keep BID BP log and bring to office visit RIVERA - secondary to PNA but with ARIC will consider ECHO and ischemic workup as outpatient Pt CV stable for DC. She needs office visit with us 1-2 weeks post discharge.
--- NOTE | 2024-04-22 10:07 | SW/DCPLANNER ---
Spoke with patient on the phone. Patient stated that she is very weak due to not eating. I stated to patient that if she ate something it could help her with her strength. Patient stated that they were able to get her medicine picked up and that her dauhter was getting another one today from [facility]. Patient stated that she is aware of her upcoming appointment. Patient stated that she has no questions or concerns at this time. Wilmer Torres
== END 2024-04-21 15:43 | disposition home or self-care (01) ==
LOC: ER 18:07 → 2ND 21:54
PROVIDERS: Internal Medicine Adolescent Medicine; Admitting Provider Internal Medicine; Emergency Provider Emergency Medicine; Visit Provider Internal Medicine
DX: E11.10 Type 2 diabetes mellitus with ketoacidosis without coma (principal); K52.9 Noninfective gastroenteritis and colitis, unspecified; J18.9 Pneumonia, unspecified organism; E87.6 Hypokalemia; I10 Essential (primary) hypertension; I70.1 Atherosclerosis of renal artery; Z55.6 Problems related to health literacy; F17.210 Nicotine dependence, cigarettes, uncomplicated
CPT/HCPCS: 36415; 71275; 74174; 80048; 80053; 81001; 82009; 82962; 83036; 83605; 83690; 83735; 84145; 84484; 85007; 85025; 85027; 85610; 85730; 87040; 87086; 87633; 93005; 93306; 93976; 94640; 99291; G0378; J0360; J0696; J0780; J1650; J1956; J2550; J3480; J7030; J7620; Q9967

== ENCOUNTER 2024-05-02 13:12 | Observation (INO) | payer MEDICAID, SELFPAY ==
[2024-05-02] VITALS (14 sets, daily range): BP systolic 87–131; BP diastolic 53–70; PULSE 71–94; RESP 17–18; TEMP 36.4–37.4; O2SAT 96–100; BMI 19.6; BMI 18.8
--- NOTE | 2024-05-02 13:14 | ECG_ITS ---
APPROVED REPORT Exam: Resting ECG HR:81 bpm ECG Measurements Heart Rate 81 AXES NC 185 P 58 QRSd 103 QRS 67 QT 384 T 60 QTc 421 Conclusion SINUS RHYTHM MODERATE ST DEPRESSION [0.05+ mV ST DEPRESSION] ABNORMAL ECG UNCONFIRMED REPORT Electronically signed by : Clint Swanson, 05/02/2024 15:32:11
--- NOTE | 2024-05-02 13:21 | ED_ITS ---
<Statement entered by Jay Swanson MD - 05/05/24 15:31> I was consulted by the CAMILLE, and we discussed the complexity of the problems being addressed. I approved the treatment and management plan for this patient's care in the emergency department, thus performing a substantive portion of the medical decision making. Jay Swanson MD, KEELY, FACEP Discharge Plan Disposition Patient Disposition: Admitted Condition: Good Clinical Impressions Clinical Impression: Orthostatic hypotension, Hyponatremia, Hypokalemia, Therapeutic misadventure Discharge ED Provider: Jay Swanson HPI General Chief Complaint: Chest Pain Stated Complaint: cp Time Seen by Provider: 05/02/24 13:21 History of Present Illness HPI narrative: Patient was sent from her PCPs office for low blood pressure. Patient's presenting complaint says chest pain which she has had intermittently however her primary presentation complaint is low blood pressure. Patient was admitted last week for hyperglycemia, uncontrolled hypertension, SUZANNE, and reported bacterial pneumonia. Upon discharge she was started on carvedilol hydrochlorothiazide and irbesartan along with metformin to treat her diabetes. She was also prescribed 3 more days upon discharge of Levaquin to treat her pneumonia. She had a follow-up with her PCP today to recheck all of her conditions and it was noted that patient had a normal pressure and normal heart rate when supine but pressure dropped into the 60s and 70s systolic upon standing. Patient reports that she has been dizzy and lightheaded having difficulty walking since this weekend. She also reports decreased urinary output. She denies any fever chills shortness of breath hemoptysis hematochezia melena nausea vomiting diarrhea abdominal pain productive cough etc. Related Data Home Medications ?Medication ?Instructions ?Recorded ?Confirmed ondansetron 4 mg disintegrating 4 mg PO Q6HP PRN nausea and 04/20/24 05/02/24 tablet vomiting Previous Rx's ?Medication ?Instructions ?Recorded carvedilol 6.25 mg tablet 6.25 mg PO BID 30 days #60 tabs 04/21/24 hydrochlorothiazide 25 mg tablet 25 mg PO DAILY 30 days #30 tabs 04/21/24 irbesartan 150 mg tablet 150 mg PO DAILY 30 days #30 tabs 04/21/24 levofloxacin 750 mg tablet 750 mg PO DAILY 3 days #3 tabs 04/21/24 metformin 500 mg tablet 500 mg PO BID #60 tabs 04/21/24 Allergies Allergy/AdvReac Type Severity Reaction Status Date / Time sumatriptan (From Imitrex) Allergy Intermediate Stiffness Verified 04/19/24 22:39 ibuprofen AdvReac Intermediate Vomiting Verified 04/19/24 22:39 wheat AdvReac Unknown Verified 04/19/24 22:39 allergy reaction [facility] Disclaimer: The information contained in this section may have been updated after the patient was seen, as this information can be updated by other users. Medical History COPD (chronic obstructive pulmonary disease) Surgical History History of hysterectomy Family History Other No significant family history Social History Smoking Status: Current every day smoker alcohol intake: never substance use type: marijuana current occupational status: disabled Travel in the last 8 weeks: None Have you lived/traveled outside US in past 30 days?: No Contact w/someone who lives/traveled outside US past 30 days?: No Exposure to someone with infectious disease in past 14 days?: No Do you have a fever (greater than 100.4 F or 38 C)?: No Have you tested positive for COVID-19: No Exposed to someone with COVID-19 in past 14 days?: No Do you have a sore throat?: No Do you have a cough?: No Do you have any weakness?: Yes Do you have any diarrhea?: No Are you experiencing any unusual bleeding?: No Do you have any muscle aches/pain?: No Do you have any abdominal pain?: No Are you experiencing loss of taste or smell?: No Other Medical History Have you received the Flu Vaccine for this season: No Have you received the Pneumonia Vaccine: No ROS Obtained: Yes Systems reviewed as appropriate & no additional complaints except as documented Physical Exam General General appearance: alert and in no apparent distress Respiratory Respiratory exam: Present normal lung sounds bilaterally Cardiovascular Cardiovascular exam: Present regular rate Neurological Exam Neurological exam: Present alert and oriented X3 HEART Score HEART Score HEART Score assessment performed?: Yes History (anamnesis): Slightly suspicious ECG: Non-specific disturbance Age: 45-65 years Risk factors: 3 or more risk factors Troponin: </= normal limit HEART Score: 4 Critical Care Critical Care Time Critical Care Time: No Medical Decision Making Medical Records Medical records reviewed: Yes I reviewed the patient's medical records. Attila Inquiry Pt receiving controlled substance: No Vital Signs Vital Signs: 05/02/24 13:18 05/02/24 13:50 05/02/24 14:00 Temperature 97.6 F Temperature Source Oral Pulse Rate 82 80 Pulse Rate [Left] 87 Pulse Rate [Orthostatic Lying Left] Pulse Rate [Orthostatic Sitting Left] Pulse Rate [Orthostatic Standing Left] Respiratory Rate 18 Blood Pressure 100/55 L 108/54 L Blood Pressure [Orthostatic Lying Left Arm] Blood Pressure [Orthostatic Sitting Left Arm] Blood Pressure [Orthostatic Standing Left Arm] Blood Pressure [Right Arm] 116/69 Blood Pressure Mean Blood Pressure Mean [Right Arm] 84 Blood Pressure Source [Right Arm] Automatic Cuff 02 Sat by Pulse Oximetry 97 98 97 Oxygen Delivery Method Room Air Room Air 05/02/24 14:26 05/02/24 14:26 05/02/24 14:27 Temperature Temperature Source Pulse Rate 73 74 75 Pulse Rate [Left] Pulse Rate [Orthostatic Lying Left] Pulse Rate [Orthostatic Sitting Left] Pulse Rate [Orthostatic Standing Left] Respiratory Rate Blood Pressure 113/58 L 113/56 L 87/53 L Blood Pressure [Orthostatic Lying Left Arm] Blood Pressure [Orthostatic Sitting Left Arm] Blood Pressure [Orthostatic Standing Left Arm] Blood Pressure [Right Arm] Blood Pressure Mean 74 74 64 Blood Pressure Mean [Right Arm] Blood Pressure Source [Right Arm] 02 Sat by Pulse Oximetry 98 96 97 Oxygen Delivery Method Room Air Room Air Room Air 05/02/24 14:28 05/02/24 14:29 05/02/24 14:30 Temperature Temperature Source Pulse Rate 76 82 Pulse Rate [Left] Pulse Rate [Orthostatic Lying Left] 71 Pulse Rate [Orthostatic Sitting Left] 74 Pulse Rate [Orthostatic Standing Left] 94 H Respiratory Rate Blood Pressure 120/58 L 98/61 L Blood Pressure [Orthostatic Lying Left Arm] 113/56 L Blood Pressure [Orthostatic Sitting Left Arm] 113/58 L Blood Pressure [Orthostatic Standing Left Arm] 87/53 L Blood Pressure [Right Arm] Blood Pressure Mean 72 Blood Pressure Mean [Right Arm] Blood Pressure Source [Right Arm] 02 Sat by Pulse Oximetry 96 98 Oxygen Delivery Method Room Air Room Air 05/02/24 15:10 05/02/24 15:30 05/02/24 16:00 Temperature Temperature Source Pulse Rate 74 78 79 Pulse Rate [Left] Pulse Rate [Orthostatic Lying Left] Pulse Rate [Orthostatic Sitting Left] Pulse Rate [Orthostatic Standing Left] Respiratory Rate Blood Pressure 119/63 131/62 122/64 Blood Pressure [Orthostatic Lying Left Arm] Blood Pressure [Orthostatic Sitting Left Arm] Blood Pressure [Orthostatic Standing Left Arm] Blood Pressure [Right Arm] Blood Pressure Mean Blood Pressure Mean [Right Arm] Blood Pressure Source [Right Arm] 02 Sat by Pulse Oximetry 100 100 98 Oxygen Delivery Method Room Air 05/02/24 16:15 Temperature 98.3 F Temperature Source Pulse Rate 81 Pulse Rate [Left] Pulse Rate [Orthostatic Lying Left] Pulse Rate [Orthostatic Sitting Left] Pulse Rate [Orthostatic Standing Left] Respiratory Rate 17 Blood Pressure 122/64 Blood Pressure [Orthostatic Lying Left Arm] Blood Pressure [Orthostatic Sitting Left Arm] Blood Pressure [Orthostatic Standing Left Arm] Blood Pressure [Right Arm] Blood Pressure Mean Blood Pressure Mean [Right Arm] Blood Pressure Source [Right Arm] 02 Sat by Pulse Oximetry Oxygen Delivery Method Room Air Lab Data Lab results reviewed: Yes I reviewed the patient's lab results. Labs: Lab Results 05/02/24 13:25: WBC 11.2 H, RBC 4.12 L, Hgb 12.1 L, Hct 34.0 L, MCV 82.5, MCH 29.4, MCHC 35.6 H, RDW 11.1 L, Plt Count 559 H, MPV 9.0, Neut % (Auto) 67.2, Lymph % (Auto) 22.0, [place] % (Auto) 9.0, Eos % (Auto) 0.7, Baso % (Auto) 0.5, Neut # (Auto) 7.5, Lymph # (Auto) 2.5, [place] # (Auto) 1.0, Eos # (Auto) 0.1, Baso # (Auto) 0.1, Sodium 125 L, Potassium 3.1 L, Chloride 89 L, Carbon Dioxide 27, Anion Gap 12.1, BUN 27 H, Creatinine 0.80, Estimated Creat Clear 73, Estimated GFR 74, Est GFR ( Amer) 89, Glucose 147 H, Calcium 10.0, Magnesium 1.7, Total Bilirubin 0.6, AST 24, ALT 23, Alkaline Phosphatase 114, Total Protein 7.3, Albumin 3.7, Globulin 3.6 H, Albumin/Globulin Ratio 1.0 L, HIV Ag/Ab Combo Qual Negative 05/02/24 13:31: VBG pH 7.54 H, VBG pCO2 27.8 L, VBG pO2 20.4 L, VBG HCO3 23.5, VBG Total CO2 24.3, VBG O2 Saturation 41.6 L, VBG Base Excess 1.0, VBG Lactic Acid 3.3 H 05/02/24 14:55: Urine Color Yellow, Urine Appearance Clear, Urine pH 7.5, Ur Specific [place] 1.020, Urine Protein Negative, Urine Glucose (UA) Negative, Urine Ketones Negative, Urine Blood Negative, Urine Nitrate Negative, Urine Bilirubin Negative, Urine Urobilinogen 0.2, Ur Leukocyte Esterase Negative, Urine RBC None, Urine WBC 3-5, Ur Squamous Epith Cells 3-5, Urine Bacteria Trace 05/02/24 15:32: Troponin I < 0.01 05/02/24 13:25 05/02/24 13:25 Response Orders (Tests/Meds): ED MEDICATIONS Discontinued Medications Generic Name Dose Route Start Last Admin Trade Name Freq PRN Reason Stop Dose Admin Lactated Ringer's 1,000 mls @ 999 mls/hr 05/02/24 13:30 05/02/24 13:48 Lactated Ringer's 1000 Ml Bag IV 05/02/24 14:30 999 mls/hr .Q1H1M ONE Administration ORDERS Category Date Time Status Chest XR -- portable [XR chest portable] Stat Exams 05/02/24 14:12 Completed Basic Metabolic Panel Routine Lab 05/02/24 18:30 Ordered CBC w/Auto Diff [Complete Blood Count Auto Diff] Stat Lab 05/02/24 13:25 Completed CMP [Comprehensive Metabolic Panel] Stat Lab 05/02/24 13:25 Completed Complete Blood Count Auto Diff AMLAB Lab 05/03/24 06:00 Ordered Comprehensive Metabolic Panel AMLAB Lab 05/03/24 06:00 Ordered HIV Combo Stat Lab 05/02/24 13:25 Completed Hep C Ab with Reflex to RNA Stat Lab 05/02/24 13:25 Received Magnesium AMLAB Lab 05/03/24 06:00 Ordered Magnesium Routine Lab 05/02/24 18:30 Ordered Magnesium Stat Lab 05/02/24 13:25 Completed Trop I [Troponin I] Stat Lab 05/02/24 15:32 Completed Troponin I Q3H Lab 05/02/24 18:30 Ordered Troponin I Q3H Lab 05/02/24 21:30 Ordered UA [Urinalysis and Microscopic] Stat Lab 05/02/24 14:55 Completed VBG [Venous Blood Gas] Stat RT 05/02/24 13:31 Completed MDM Narrative Medical Decision Narrative: In summary patient is a 58-year-old female who presents to the emergency department for evaluation of low blood pressure and intermittent chest pain. Patient is hemodynamically stable at the time of my exam with a blood pressure 116/69 pulse 87 respiratory rate is 18 satting at 97% on room air upon arrival, and afebrile at 97.6. Physical exam is unremarkable and nonfocal including normal breath sounds no chest pain on palpation no epigastric tenderness normal abdominal exam with no tenderness no rebound no guarding no rigidity and normal bowel sounds. Differential diagnosis includes therapeutic misadventure given 3 new blood pressure medications versus ACS versus GERD versus electrolyte abnormality etc. initial workup will be conducted with hematologic labs plain film chest x-ray urinalysis. Initial interventions include crystalloid bolus for now. Initial workup reviewed by me shows that patient actually might be hemoconcentrated as her platelet count is 559 venous blood gas shows pH 7.54 with a VBG lactic acid of 3.3 CMP significant for sodium of 125 potassium 3.1 with the remainder of her hematologic labs being nonactionable. Upon repeat evaluation patient is still orthostatic and symptomatic despite a liter of fluid. Given this I had interact discussion with hospital medicine regarding patient management and she will be admitted for further evaluation and care
[2024-05-02 13:37] LABS: Basophils # 0.1 K/mm3 (0-0.2); Basophils % 0.5 % (0.1-2.0); Eosinophils # 0.1 K/mm3 (0.0-0.4); Eosinophils % 0.7 % (0.1-12.0); Hemoglobin 12.1 g/dL (12.2-16.2); Lymphocytes # 2.5 K/mm3 (0.7-4.5); Mean Corpuscular HGB Conc 35.6 g/dL (31.8-35.4); Mean Corpuscular Hemoglobin 29.4 pg (27.0-31.2); Mean Corpuscular Volume 82.5 fl (81-99); Neutrophils # 7.5 K/mm3 (1.8-7.8); Neutrophils % 67.2 % (37.0-80.0); Platelet Count 559 K/mm3 (142-424); Red Blood Count 4.12 M/mm3 (4.20-5.40); Red Cell Distribution Width 11.1 % (11.5-17.5); White Blood Count 11.2 K/mm3 (4.8-10.8)
[2024-05-02 13:43] LABS: Chloride 89 mmol/L (98-107)
[2024-05-02 13:44] LABS: Albumin Level 3.7 g/dl (3.5-5.0); Potassium 3.1 mmoL/L (3.5-5.1); Sodium 125 mmol/L (136-145)
[2024-05-02 13:45] LABS: VBG HCO3 23.5 mmol/L (23-30); VBG Oxygen Saturation 41.6 % (50-70); VBG PCO2 27.8 mmol/L (35-51); VBG PH 7.54 mmol/L (7.31-7.41); VBG PO2 20.4 mmol/L (28-40); VBG Total CO2 24.3 mmol/L (23-27)
[2024-05-02 13:46] LABS: Blood Urea Nitrogen 27 mg/dl (7-17); Creatinine Clearance Estimated 73 mL/min (50-200); Estimated Glomerular Filt Rate 74 ml/min (>60); GFR (African American) 89 ML/MIN (>60)
[2024-05-02 13:47] LABS: Alanine Aminotransferase 23 U/L (12-78); Alkaline Phosphatase 114 U/L (38-126); Anion Gap 12.1 mEq/L (5-15); Aspartate Amino Transferase 24 U/L (14-36); Bilirubin,Total 0.6 mg/dl (0.2-1.3); Carbon Dioxide 27 mmol/L (22.0-30.0); Globulin 3.6 g/dL (1.3-3.2); Glucose 147 mg/dl (74-100); Magnesium 1.7 mg/dl (1.6-2.3); Total Protein,Serum 7.3 g/dl (6.3-8.2)
[2024-05-02] MEDS: LACTATED RINGERS 1000ML 1,000 ML 999 ML IV (13:48)
[2024-05-02 13:50] LABS: Lactate Venous 3.3 mmol/L (0.4-2.0)
--- NOTE | 2024-05-02 14:12 | XR_ITS ---
FINAL REPORT CLINICAL HISTORY: Chest pain COMPARISON: 04/18/2024 FINDINGS: A single PA view of the chest was obtained. The cardiac and mediastinal silhouettes are within normal limits. There is evidence of prior granulomatous disease. There is underlying emphysema. There is no evidence of focal infiltrate, effusion, or pneumothorax. IMPRESSION: No radiographic evidence of acute cardiac or pulmonary disease on this single view of the chest. Reviewed, Interpreted and Dictated by Gretel Moore MD Transcribed by Janis Anthony Authenticated and [facility]
[2024-05-02 14:58] LABS: Microscopic, Urine URINE MICROSCOPIC (MICROSCOPIC)
[2024-05-02 15:03] LABS: Appearance,Urine CLEAR (Clear); Bilirubin,Urine Negative (Negative); Blood, Urine Negative (Negative); Color,Urine YELLOW (Yellow); Glucose,Urine (UA) Negative (Negative); Ketones,Urine Negative (Negative); Leukocyte Esterase,Urine Negative (Negative); Nitrate,Urine Negative (Negative); PH,Urine 7.5 (5.0-8.5); Protein,Urine Negative (Negative); Urobilinogen,Urine 0.2 EU/dl (0.2)
--- NOTE | 2024-05-02 15:05 | PC.NURSE ---
Giovanni Masterson PAC s/w Dr. Hammer for admission, agrees. supervisor of way is aware of admission. Bed assignment to follow when room clean & available.
--- NOTE | 2024-05-02 15:09 | EXP.HP ---
History of Present Illness *Admission Date: 05/02/24 *Reason for visit:: Weak, dizzy *History of present illness: Ms. Rincon is a 58-year-old female who was admitted 2 weeks ago for severe hypertension and new diagnosis of hyperglycemia/diabetes. Started on medications for blood pressure and diabetes at that time. Discharged home with improved blood pressure. Presented today to her PCPs office because of dizziness over the past 3 to 4 days. Has had some intermittent chest discomfort but her main complaint was low blood pressure for which she was sent from her PCPs office to the ER for evaluation. She has been taking her medications as prescribed. Finished a course of antibiotics, has been taking metformin for diabetes and 3 new blood pressure medications. Stable on room air. Afebrile. Denies any nausea or vomiting. Denies any cough or shortness of breath. On presentation to the ER, found to have orthostatic hypotension with drop in systolics from 110s to 80s. Workup found mild electrolyte disturbances with low potassium and magnesium. Sodium low at 125. Initiated replacement. Given orthostatic hypotension, patient necessitating admission for fluid resuscitation and further management. Medicine consulted for further care. On arrival to the floor, patient states she feels little better after initial fluids. Alert and oriented x 4. No additional complaints. Aside from dizziness, states she otherwise feels generally better than last admission. [facility] Disclaimer: The information contained in this section may have been updated after the patient was seen, as this information can be updated by other users. Medical History Systemic inflammatory response syndrome Gastroenteritis Acute hyperglycemia Hypokalemia Sepsis Nausea & vomiting Vomiting COPD (chronic obstructive pulmonary disease) Surgical History History of hysterectomy Family History Other No significant family history Social History Smoking Status: Current every day smoker alcohol intake: never substance use type: marijuana current occupational status: disabled Travel in the last 8 weeks: None Have you lived/traveled outside [place] in past 30 days?: No Contact w/someone who lives/traveled outside US past 30 days?: No Exposure to someone with infectious disease in past 14 days?: No Do you have a fever (greater than 100.4 F or 38 C)?: No Have you tested positive for COVID-19: No Exposed to someone with COVID-19 in past 14 days?: No Do you have a sore throat?: No Do you have a cough?: No Do you have any weakness?: Yes Do you have any diarrhea?: No Are you experiencing any unusual bleeding?: No Do you have any muscle aches/pain?: No Do you have any abdominal pain?: No Are you experiencing loss of taste or smell?: No Other Medical History Have you received the Flu Vaccine for this season: No Have you received the Pneumonia Vaccine: No Review of Systems Review of Systems Review of systems (narrative): 14 point review of systems performed, pertinent positives and negatives as per [facility] Meds Home Medications and Allergies Home Medications ?Medication ?Instructions ?Recorded ?Confirmed ?Type ondansetron 4 mg disintegrating 4 mg PO Q6HP PRN nausea and 04/20/24 05/02/24 History tablet vomiting carvedilol 6.25 mg tablet 6.25 mg PO BID 30 days #60 tabs 04/21/24 05/02/24 Rx hydrochlorothiazide 25 mg tablet 25 mg PO DAILY 30 days #30 tabs 04/21/24 05/02/24 Rx irbesartan 150 mg tablet 150 mg PO DAILY 30 days #30 tabs 04/21/24 05/02/24 Rx levofloxacin 750 mg tablet 750 mg PO DAILY 3 days #3 tabs 04/21/24 05/02/24 Rx metformin 500 mg tablet 500 mg PO BID #60 tabs 04/21/24 05/02/24 Rx New Prescriptions to Start Prescriptions: Allergies Allergy/AdvReac Type Severity Reaction Status Date / Time sumatriptan (From Imitrex) Allergy Intermediate Stiffness Verified 04/19/24 22:39 ibuprofen AdvReac Intermediate Vomiting Verified 04/19/24 22:39 wheat AdvReac Unknown Verified 04/19/24 22:39 allergy reaction Exam Data for Last 24 hours Vital signs and Labs for Last 24 Hours: Temp Pulse Resp BP Pulse Ox O2 Del Method 97.6 F 82 18 98/61 L 98 Room Air 05/02/24 13:18 05/02/24 14:30 05/02/24 13:18 05/02/24 14:30 05/02/24 14:30 05/02/24 14:30 Laboratory Results - last 24 hr 05/02/24 13:25: WBC 11.2 H, RBC 4.12 L, Hgb 12.1 L, Hct 34.0 L, MCV 82.5, MCH 29.4, MCHC 35.6 H, RDW 11.1 L, Plt Count 559 H, MPV 9.0, Neut % (Auto) 67.2, Lymph % (Auto) 22.0, Robertson % (Auto) 9.0, Eos % (Auto) 0.7, Baso % (Auto) 0.5, Neut # (Auto) 7.5, Lymph # (Auto) 2.5, Robertson # (Auto) 1.0, Eos # (Auto) 0.1, Baso # (Auto) 0.1, Sodium 125 L, Potassium 3.1 L, Chloride 89 L, Carbon Dioxide 27, Anion Gap 12.1, BUN 27 H, Creatinine 0.80, Estimated Creat Clear 73, Estimated GFR 74, Est GFR ( Amer) 89, Glucose 147 H, Calcium 10.0, Magnesium 1.7, Total Bilirubin 0.6, AST 24, ALT 23, Alkaline Phosphatase 114, Total Protein 7.3, Albumin 3.7, Globulin 3.6 H, Albumin/Globulin Ratio 1.0 L 05/02/24 13:31: VBG pH 7.54 H, VBG pCO2 27.8 L, VBG pO2 20.4 L, VBG HCO3 23.5, VBG Total CO2 24.3, VBG O2 Saturation 41.6 L, VBG Base Excess 1.0, VBG Lactic Acid 3.3 H I & O for Last 24 hours: Intake & Output 04/29/24 04/30/24 05/01/24 05/02/24 23:59 23:59 23:59 23:59 Weight 60.328 kg Constitutional Constitutional: no acute distress, chronically ill appearing and cooperative *Routine HEENT Exam Head: Present normocephalic Eye: Present EOMI and PERRL ENT: Present mucous membranes dry *Routine Neck Exam Neck: Present supple and full ROM *Routine Respiratory Exam Respiratory: Present CTA bilaterally; Absent rhonchi, wheezes or crackles *Routine Cardiovascular Exam Cardiovascular: Present RRR, Normal S1 and Normal S2 *Routine Abdominal Exam Abdominal: Present soft and normoactive bowel sounds; Absent tenderness *Routine Rectal Exam Rectal:: deferred *Routine Genitalia Exam Genitalia:: deferred *Routine Extremities Exam Extremities: Present full ROM and normal capillary refill; Absent cyanosis *Routine Skin Exam Skin: Present intact; Absent rash *Routine Neurological Exam Neurological: Present alert, oriented X3 and moving all extremities; Absent altered mental status Assessment and Plan *Assessment and plan (1) Orthostatic hypotension: Status: Acute Category: Medical Code(s): I95.1 - Orthostatic hypotension (2) Hypokalemia: Status: Acute Category: Medical Code(s): E87.6 - Hypokalemia (3) Hyponatremia: Status: Acute Category: Medical Code(s): E87.1 - Hypo-osmolality and hyponatremia (4) Therapeutic misadventure: Status: Acute Category: Medical Code(s): Y69 - Unspecified misadventure during surgical and medical care (5) Newly diagnosed diabetes: Status: Acute Category: Medical Code(s): E11.9 - Type 2 diabetes mellitus without complications (6) Hypertension: Status: Acute Category: Medical Code(s): I10 - Essential (primary) hypertension (7) COPD (chronic obstructive pulmonary disease): Status: Acute Category: Medical Code(s): J44.9 - Chronic obstructive pulmonary disease, unspecified Plan 58-year-old female recently admitted for new diagnosis of diabetes and hypertensive urgency. Started on empiric regimen with improvement in blood pressure. Presents today with dizziness and weakness. Found to be orthostatic with systolics in the 80s. Discussed case with ER physician, requesting admission for management of hypotension, electrolyte disturbances, and adjustment to medication regimen. I agreed to admit for further management. Patient feeling somewhat better since getting fluids in the ER. Systolic pressure improving into the 120s. Comfortable as long as she lays still. Problems addressed as follows Orthostatic hypotension Therapeutic misadventure -Severely elevated blood pressures 2 weeks ago with systolics 180s-220, diastolic 80-103 -Blood pressure today low with systolics approximately 110, dropped to the 80s upon standing. Orthostatic blood pressures positive. -Currently on carvedilol, HCTZ, irbesartan at home. Will hold ARB and diuretic. Continue carvedilol at decreased dose of 3.125 mg twice daily to avoid significant rebound hypertension. Will consider initiating irbesartan in the morning at low-dose. -Reviewed note from previous admission, patient had abdominal bruit. Concern for renal artery stenosis. Cardiology was consulted, plan for further workup as an outpatient. Will hold on further intervention at this time. New diagnosis of diabetes -A1c 7.5 2 weeks ago. Glucose 147 on presentation. -Continue metformin 500 mg twice daily. Monitor glucose on morning labs and with FSGS ACHS. Sliding scale insulin low-dose -Nutrition counseling patient on dietary adjustments for diabetes. White count improved to 11, hemoglobin 12. Repeat CBC, CMP, magnesium ordered for the morning. Repeat BMP ordered for this evening to monitor potassium, sodium Hypokalemia: Will replace orally with 40 mEq 3 times a day, level 3.1 on admission. Hyponatremia: 125 on admission. Monitor for improvement with fluid resuscitation. Suspect low due to diuretic Hypomagnesemia: 1.7 on admission. Will replace if continues to drop. PPx Lovenox subcutaneous Full code Diabetic diet
[2024-05-02 15:38] LABS: Bacteria,Urine Trace /lpf
[2024-05-02 16:00] LABS: HIV Combo NEGATIVE (Negative)
--- NOTE | 2024-05-02 16:14 | PC.NURSE ---
Care handoff report called to Vannessa MAHMOOD. Pt pending transport
--- NOTE | 2024-05-02 16:30 | PC.NURSE ---
arrived by w/c from ED
[2024-05-02 16:31] LABS: Troponin I < 0.01 ng/ml (0.00-0.034)
[2024-05-02 17:35] LABS: POC Glucose,Bedside 98 (70-110)
[2024-05-02 17:50] LABS: Reflex Lactic Add Lactic Reflex
[2024-05-02 18:38] LABS: Chloride 88 mmol/L (98-107); Sodium 124 mmol/L (136-145)
[2024-05-02 18:41] LABS: Anion Gap 10.8 mEq/L (5-15); Blood Urea Nitrogen 22 mg/dl (7-17); Calcium 9.6 mg/dl (8.4-10.2); Carbon Dioxide 28 mmol/L (22.0-30.0); Creatinine Clearance Estimated 94 mL/min (50-200); Estimated Glomerular Filt Rate 103 ml/min (>60); GFR (African American) 124 ML/MIN (>60); Glucose 142 mg/dl (74-100); Magnesium 1.6 mg/dl (1.6-2.3)
[2024-05-02 18:42] LABS: Lactic Acid Follow Up (RFLX 1) 1.8 mmol/L (0.7-2.1)
[2024-05-02 19:06] LABS: Potassium 2.8 mmoL/L (3.5-5.1); Troponin I < 0.01 ng/ml (0.00-0.034)
--- NOTE | 2024-05-02 19:22 | PC.NURSE ---
Critical potassium 2.8 reported to Br[facility] at this time.
--- NOTE | 2024-05-02 19:38 | PC.NURSE ---
SPoke with Nikolay from [facility], stated to follow new potassium order Q4 tonight and TID 40 will go into effect in morning 0900.
[2024-05-02] MEDS: METFORMIN 500MG TABLET 500 MG PO (20:45)
[2024-05-02] MEDS: POTASSIUM CHLORIDE 10MEQ CAPSULE.ER 40 MEQ PO (20:45)
[2024-05-02] MEDS: MAGNESIUM SULFATE IN WATER 2 GM/50 ML PIGGYBACK IV ×2 (20:46→21:58)
[2024-05-02] MEDS: CARVEDILOL 6.25MG TABLET 3.125 MG PO (20:46)
[2024-05-02 22:09] LABS: Troponin I < 0.01 ng/ml (0.00-0.034)
[2024-05-03] VITALS (7 sets, daily range): BP systolic 93–123; BP diastolic 52–69; PULSE 70–101; RESP 16–18; TEMP 36.3–36.8; O2SAT 96–100; BMI 19.5
[2024-05-03] MEDS: POTASSIUM CHLORIDE 10MEQ CAPSULE.ER 40 MEQ PO ×2 (00:03→04:31)
[2024-05-03 05:33] LABS: HCV Ab Non Reactive (Non Reactive)
[2024-05-03 05:57] LABS: POC Glucose,Bedside 147 (70-110)
--- NOTE | 2024-05-03 06:21 | PC.NURSE ---
Alert and oriented. No complaints from patient. Standby assist to restroom. Patient did state her dizziness was not as bad as it has been. Electrolyte replacement protocol. Room air. Call light in reach.
[2024-05-03 06:55] LABS: Basophils % 0.5 % (0.1-2.0); Eosinophils # 0.1 K/mm3 (0.0-0.4); Eosinophils % 1.3 % (0.1-12.0); Hematocrit 32.8 % (37.0-47.0); Hemoglobin 11.3 g/dL (12.2-16.2); Lymphocytes # 2.1 K/mm3 (0.7-4.5); Lymphocytes % 25.3 % (10-50); Mean Corpuscular HGB Conc 34.5 g/dL (31.8-35.4); Mean Corpuscular Volume 84.3 fl (81-99); Mean Platelet Volume 8.9 fl (7.4-10.4); Monocytes # 0.9 K/mm3 (0.1-1.0); Monocytes % 11.1 % (1.7-9.3); Neutrophils % 61.3 % (37.0-80.0); Platelet Count 504 K/mm3 (142-424); Red Blood Count 3.89 M/mm3 (4.20-5.40); Red Cell Distribution Width 11.3 % (11.5-17.5); White Blood Count 8.2 K/mm3 (4.8-10.8)
[2024-05-03 07:17] LABS: Albumin Level 3.4 g/dl (3.5-5.0); Chloride 94 mmol/L (98-107)
[2024-05-03 07:18] LABS: Potassium 4.2 mmoL/L (3.5-5.1); Sodium 124 mmol/L (136-145)
[2024-05-03 07:20] LABS: Alanine Aminotransferase 20 U/L (12-78); Anion Gap 11.2 mEq/L (5-15); Aspartate Amino Transferase 33 U/L (14-36); Blood Urea Nitrogen 17 mg/dl (7-17); Carbon Dioxide 23 mmol/L (22.0-30.0); Creatinine Clearance Estimated 96 mL/min (50-200); Estimated Glomerular Filt Rate 103 ml/min (>60); GFR (African American) 124 ML/MIN (>60); Globulin 3.3 g/dL (1.3-3.2); Total Protein,Serum 6.7 g/dl (6.3-8.2)
[2024-05-03 07:21] LABS: Alkaline Phosphatase 104 U/L (38-126); Bilirubin,Total 0.4 mg/dl (0.2-1.3); Calcium 8.9 mg/dl (8.4-10.2); Glucose 146 mg/dl (74-100); Magnesium 2.2 mg/dl (1.6-2.3)
[2024-05-03] MEDS: POTASSIUM CHLORIDE 20MEQ TAB 40 MEQ PO ×2 (09:00→12:07)
[2024-05-03] MEDS: ENOXAPARIN 40MG/0.4ML SYRINGE 40 MG SUBCUT (09:00)
[2024-05-03] MEDS: CARVEDILOL 3.125MG TABLET 3.125 MG PO ×2 (09:00→21:22)
[2024-05-03] MEDS: METFORMIN 500MG TABLET 500 MG PO ×2 (09:01→16:51)
[2024-05-03] MEDS: 0.9 % SODIUM CHLORIDE 1000ML 500 ML 250 ML IV (09:12)
[2024-05-03 11:43] LABS: POC Glucose,Bedside 126 (70-110)
--- NOTE | 2024-05-03 13:43 | PC.NURSE ---
Pt is currently in bed. States that she feels weird and became lightheaded again after getting up from chair to go to bed. Pt was educated to not get up on her own and use her call light for assistance. Call light within reach.
[2024-05-03 16:05] LABS: Chloride 100 mmol/L (98-107); Sodium 129 mmol/L (136-145)
[2024-05-03 16:06] LABS: Potassium 5.2 mmoL/L (3.5-5.1)
[2024-05-03 16:08] LABS: Blood Urea Nitrogen 15 mg/dl (7-17); Creatinine Clearance Estimated 96 mL/min (50-200); Estimated Glomerular Filt Rate 103 ml/min (>60); GFR (African American) 124 ML/MIN (>60)
[2024-05-03 16:09] LABS: Anion Gap 12.2 mEq/L (5-15); Calcium 9.1 mg/dl (8.4-10.2); Carbon Dioxide 22 mmol/L (22.0-30.0); Glucose 138 mg/dl (74-100)
--- NOTE | 2024-05-03 17:09 | EXP.ACUTE.PN ---
Subjective *Date: 05/03/24 *Time: 17:09 Interval history: States she is still feeling dizzy. Denies any chest pain, nausea, confusion. Able to ambulate to the bathroom. Tolerating p.o. intake. Medical Exam Vital signs and Labs for Last 24 Hours: Vital Signs Temp Pulse Pulse Pulse Pulse Pulse Resp 05/03/24 16:54 05/03/24 16:00 97.4 F L 70 18 05/03/24 15:00 05/03/24 13:11 05/03/24 12:00 76 05/03/24 11:58 97.8 F 70 18 05/03/24 11:18 05/03/24 09:10 05/03/24 08:50 05/03/24 08:00 84 05/03/24 08:00 97.9 F 72 18 05/03/24 06:51 05/03/24 05:00 05/03/24 04:00 80 05/03/24 04:00 98.1 F 76 16 05/03/24 03:00 05/03/24 01:00 05/03/24 00:00 90 05/03/24 00:00 82 88 101 H 05/03/24 00:00 98.2 F 83 16 05/02/24 22:49 05/02/24 21:00 05/02/24 20:00 05/02/24 20:00 99.3 F 84 18 05/02/24 18:41 05/02/24 18:14 BP BP BP BP Pulse Ox O2 Del Method 05/03/24 16:54 Room Air 05/03/24 16:00 122/57 L 99 Room Air 05/03/24 15:00 Room Air 05/03/24 13:11 Room Air 05/03/24 12:00 05/03/24 11:58 111/52 L 100 Room Air 05/03/24 11:18 Room Air 05/03/24 09:10 Room Air 05/03/24 08:50 Room Air 05/03/24 08:00 05/03/24 08:00 114/59 L 96 Room Air 05/03/24 06:51 Room Air 05/03/24 05:00 Room Air 05/03/24 04:00 05/03/24 04:00 114/67 99 Room Air 05/03/24 03:00 Room Air 05/03/24 01:00 Room Air 05/03/24 00:00 05/03/24 00:00 118/63 112/58 L 93/61 L 05/03/24 00:00 117/69 100 Room Air 05/02/24 22:49 Room Air 05/02/24 21:00 Room Air 05/02/24 20:00 Room Air 05/02/24 20:00 112/64 98 Room Air 05/02/24 18:41 Room Air 05/02/24 18:14 Room Air Intake and Output 05/03/24 05/03/24 05/03/24 07:59 15:59 23:59 Intake Total 400 / 1900 1500 / 1900 Output Total 0 / 0 0 / 0 0 / 0 Balance 400 / 1900 1500 / 1900 0 / 1900 Intake: Intake, Oral Amount 300 / 1300 1000 / 1300 Intake, Total IV Amount 100 / 600 500 / 600 0.9 % Sodium Chloride 1000ML 500 / 500 500 ml @ 250 mls/hr IV .Q2H ONE Rx#:[id number] Magnesium Sulfate in Water 2 gm 100 / 100 In 50 ml @ 50 mls/hr IV Q1H [facility] Rx#:[id number] Output: Output, Urine Amount 0 / 0 0 / 0 0 / 0 Other: Number of Unmeasured Voids 1 1 Weight 59.738 kg Patient Weight 05/03/24 23:59 Weight 59.738 kg Laboratory Results - last 24 hr 05/02/24 17:28: POC Glucose 98 05/02/24 18:15: Sodium 124 L, Potassium 2.8 L*, Chloride 88 L, Carbon Dioxide 28, Anion Gap 10.8, BUN 22 H, Creatinine 0.60 D, Estimated Creat Clear 94, Estimated GFR 103, Est GFR ( Amer) 124 D, Glucose 142 H, Lactate 1.8, Calcium 9.6, Magnesium 1.6, Troponin I < 0.01 05/02/24 21:26: Troponin I < 0.01, Hepatitis C Antibody Non reactive 05/03/24 05:48: POC Glucose 147 H 05/03/24 06:18: WBC 8.2 D, RBC 3.89 L, Hgb 11.3 L, Hct 32.8 L, MCV 84.3, MCH 29.0, MCHC 34.5, RDW 11.3 L, Plt Count 504 H, MPV 8.9, Neut % (Auto) 61.3, Lymph % (Auto) 25.3, Amelia % (Auto) 11.1 H, Eos % (Auto) 1.3, Baso % (Auto) 0.5, Neut # (Auto) 5.0, Lymph # (Auto) 2.1, Amelia # (Auto) 0.9, Eos # (Auto) 0.1, Baso # (Auto) 0.0, Sodium 124 L, Potassium 4.2 D, Chloride 94 L, Carbon Dioxide 23, Anion Gap 11.2, BUN 17, Creatinine 0.60, Estimated Creat Clear 96, Estimated GFR 103, Est GFR ( Amer) 124, Glucose 146 H, Calcium 8.9, Magnesium 2.2 D, Total Bilirubin 0.4, AST 33 D, ALT 20, Alkaline Phosphatase 104, Total Protein 6.7, Albumin 3.4 L, Globulin 3.3 H, Albumin/Globulin Ratio 1.0 L 05/03/24 11:36: POC Glucose 126 H 05/03/24 15:50: Sodium 129 L, Potassium 5.2 H D, Chloride 100, Carbon Dioxide 22, Anion Gap 12.2, BUN 15, Creatinine 0.60, Estimated Creat Clear 96, Estimated GFR 103, Est GFR ( Amer) 124, Glucose 138 H, Calcium 9.1 I & O for Labs for Last 24 Hours: Intake & Output 04/30/24 05/01/24 05/02/24 05/03/24 23:59 23:59 23:59 23:59 Intake Total 1509 Output Total 0 / 0 0 / 0 Balance 1509 Weight 58.06 kg 59.738 kg Constitutional: Present no acute distress, thin and cooperative Head: Present atraumatic and normocephalic ENT: Present normal exam Respiratory: Present normal respiratory effort; Absent rhonchi, wheezes or crackles Cardiac: Present Reg Rate and Rhythm and No Murmur GI: Present soft and normal bowel sounds; Absent distention or tenderness Comments:: Abdominal bruit on exam Extremities: Present normal inspection and full ROM; Absent edema Skin: Present intact; Absent erythema Neuro: Present Grossly Intact, alert, awake, oriented x 3 and moves all extremities Assessment and Plan *Assessment and plan (1) Orthostatic hypotension: Status: Acute Category: Medical Code(s): I95.1 - Orthostatic hypotension (2) Hypokalemia: Status: Acute Category: Medical Code(s): E87.6 - Hypokalemia (3) Hyponatremia: Status: Acute Category: Medical Code(s): E87.1 - Hypo-osmolality and hyponatremia (4) Therapeutic misadventure: Status: Acute Category: Medical Code(s): Y69 - Unspecified misadventure during surgical and medical care (5) Newly diagnosed diabetes: Status: Acute Category: Medical Code(s): E11.9 - Type 2 diabetes mellitus without complications (6) Hypertension: Status: Acute Category: Medical Code(s): I10 - Essential (primary) hypertension (7) COPD (chronic obstructive pulmonary disease): Status: Acute Category: Medical Code(s): J44.9 - Chronic obstructive pulmonary disease, unspecified Plan 58-year-old female recently admitted for new diagnosis of diabetes and hypertensive urgency. Started on empiric regimen with improvement in blood pressure. Presents today with dizziness and weakness. Found to be orthostatic with systolics in the 80s. Discussed case with ER physician, requesting admission for management of hypotension, electrolyte disturbances, and adjustment to medication regimen. I agreed to admit for further management. Patient still dizzy this morning. Showing some improvement in blood pressure. Denies chest pain. Will observe overnight, anticipate discharge tomorrow. Problems addressed as follows Orthostatic hypotension Therapeutic misadventure -Severely elevated blood pressures 2 weeks ago with systolics 180s-220, diastolic 80-103. Blood pressures low on admission. Orthostatics with systolic pressure dropping to the 80s. Improved with stable blood pressure today systolic blood pressure 110-120. -Continue Carvedilol 3.125 mg twice daily. Will hold HCTZ and irbesartan. -Correcting electrolyte disturbances. Sodium 124 this morning. Magnesium 4.2. Kidney function normal with creatinine 1.6 and BUN 17. -Repeat BMP for this afternoon, CBC, CMP, magnesium ordered for the morning -Reviewed note from previous admission, patient had abdominal bruit. Concern for renal artery stenosis. Cardiology was consulted, plan for further workup as an outpatient. Will hold on further intervention at this time. New diagnosis of diabetes -A1c 7.5 2 weeks ago. Glucose 146 this morning. -Continue metformin 500 mg twice daily. Monitor glucose on morning labs and with FSGS ACHS. Sliding scale insulin low-dose -Nutrition counseling patient on dietary adjustments for diabetes. White count normal 8.2. Hemoglobin 11.3. No signs of bleeding. Hypokalemia: Will replace orally with 40 mEq 3 times a day, normalized today with level of 4.2. Hyponatremia: 125 on admission, 124 this morning. Monitor closely with repeat level this afternoon. Suspect low due to diuretic Hypomagnesemia: 2.2 this morning. Will replace if drops PPx Lovenox subcutaneous Full code Diabetic diet
[2024-05-03 20:22] LABS: POC Glucose,Bedside 139 (70-110)
--- NOTE | 2024-05-03 21:25 | EXP.EVENT.NO ---
The patient patient has p.o. potassium more 3 times daily. Above potassium level is now at 5. She is also on electrolyte replacement per IV with blood draws. Will stop p.o. potassium at this time
[2024-05-04] VITALS: BP 132/68; PULSE 71; PULSE 75; RESP 16; TEMP 37; O2SAT 97
[2024-05-04 04:00] VITALS: BP 117/50; PULSE 70; PULSE 74; RESP 16; TEMP 36.9; O2SAT 99; BMI 20.1
[2024-05-04 05:20] LABS: POC Glucose,Bedside 123 (70-110)
[2024-05-04] MEDS: METFORMIN 500MG TABLET 500 MG PO (06:33)
[2024-05-04 07:00] LABS: Basophils % 0.5 % (0.1-2.0); Eosinophils # 0.2 K/mm3 (0.0-0.4); Eosinophils % 2.9 % (0.1-12.0); Hematocrit 32.7 % (37.0-47.0); Lymphocytes # 2.6 K/mm3 (0.7-4.5); Lymphocytes % 33.1 % (10-50); Mean Corpuscular HGB Conc 33.6 g/dL (31.8-35.4); Mean Corpuscular Hemoglobin 29.4 pg (27.0-31.2); Mean Corpuscular Volume 87.4 fl (81-99); Mean Platelet Volume 8.8 fl (7.4-10.4); Monocytes # 0.8 K/mm3 (0.1-1.0); Monocytes % 10.6 % (1.7-9.3); Neutrophils # 4.1 K/mm3 (1.8-7.8); Neutrophils % 52.4 % (37.0-80.0); Platelet Count 465 K/mm3 (142-424); Red Blood Count 3.74 M/mm3 (4.20-5.40); Red Cell Distribution Width 11.5 % (11.5-17.5); White Blood Count 7.8 K/mm3 (4.8-10.8)
[2024-05-04 07:10] LABS: Alanine Aminotransferase 25 U/L (12-78); Albumin Level 3.5 g/dl (3.5-5.0); Albumin/Globulin Ratio 1.1 (1.1-1.8); Alkaline Phosphatase 115 U/L (38-126); Anion Gap 12.8 mEq/L (5-15); Aspartate Amino Transferase 23 U/L (14-36); Bilirubin,Total 0.5 mg/dl (0.2-1.3); Blood Urea Nitrogen 13 mg/dl (7-17); Calcium 9.6 mg/dl (8.4-10.2); Carbon Dioxide 23 mmol/L (22.0-30.0); Chloride 102 mmol/L (98-107); Creatinine Clearance Estimated 100 mL/min (50-200); Estimated Glomerular Filt Rate 103 ml/min (>60); GFR (African American) 124 ML/MIN (>60); Globulin 3.3 g/dL (1.3-3.2); Glucose 137 mg/dl (74-100); Magnesium 1.7 mg/dl (1.6-2.3); Potassium 4.8 mmoL/L (3.5-5.1); Sodium 133 mmol/L (136-145); Total Protein,Serum 6.8 g/dl (6.3-8.2)
[2024-05-04 08:00] VITALS: BP 143/72; PULSE 77; PULSE 80; RESP 19; TEMP 36.5; O2SAT 100
[2024-05-04] MEDS: CARVEDILOL 3.125MG TABLET 3.125 MG PO (08:09)
[2024-05-04] MEDS: ENOXAPARIN 40MG/0.4ML SYRINGE 40 MG SUBCUT (08:09)
[2024-05-04 11:11] LABS: POC Glucose,Bedside 136 (70-110)
[2024-05-04 11:21] VITALS: BP 100/69; BP 119/73; BP 120/58; PULSE 70; PULSE 79; PULSE 93
[2024-05-04] MEDS: 0.9 % SODIUM CHLORIDE 1000ML 1,000 ML 999 ML IV (11:38)
[2024-05-04 12:00] VITALS: PULSE 70
--- NOTE | 2024-05-04 13:28 | EXP.DC.SUM ---
General Admission date:: 05/02/24 HPI HPI HPI: Ms. Rincon is a 58-year-old female who was admitted 2 weeks ago for severe hypertension and new diagnosis of hyperglycemia/diabetes. Started on medications for blood pressure and diabetes at that time. Discharged home with improved blood pressure. Presented today to her PCPs office because of dizziness over the past 3 to 4 days. Has had some intermittent chest discomfort but her main complaint was low blood pressure for which she was sent from her PCPs office to the ER for evaluation. She has been taking her medications as prescribed. Finished a course of antibiotics, has been taking metformin for diabetes and 3 new blood pressure medications. Stable on room air. Afebrile. Denies any nausea or vomiting. Denies any cough or shortness of breath. On presentation to the ER, found to have orthostatic hypotension with drop in systolics from 110s to 80s. Workup found mild electrolyte disturbances with low potassium and magnesium. Sodium low at 125. Initiated replacement. Given orthostatic hypotension, patient necessitating admission for fluid resuscitation and further management. Medicine consulted for further care. On arrival to the floor, patient states she feels little better after initial fluids. Alert and oriented x 4. No additional complaints. Aside from dizziness, states she otherwise feels generally better than last admission. Hospital Course Hospital Course Hospital Course: Millie Rincon is a 58-year-old female recently admitted for new diagnosis of diabetes and hypertensive urgency. Started on empiric regimen with improvement in blood pressure. Presents today with dizziness and weakness. Found to be orthostatic with systolics in the 80s. Discussed case with ER physician, requesting admission for management of hypotension, electrolyte disturbances, and adjustment to medication regimen. I agreed to admit for further management. Patient still dizzy this morning. Showing some improvement in blood pressure. Denies chest pain. Will observe overnight, anticipate discharge tomorrow. Problems addressed as follows #Orthostatic hypotension #Therapeutic misadventure - Severely elevated blood pressures 2 weeks ago with systolics 180s-220, diastolic 80-103 and had been started on carvedilol, hydrochlorothiazide, irbesartan. ? Blood pressures low on admission. Orthostatics with systolic pressure dropping to the 80s. ? Clinically improved by holding hydrochlorothiazide, irbesartan, and continuing carvedilol 3.125 twice daily. ? Patient did have mild orthostatic hypotension today, which improved after 1 L NS bolus. Her symptoms of dizziness have also resolved. - Reviewed note from previous admission, patient had abdominal bruit. Concern for renal artery stenosis. Cardiology was consulted, plan for further workup as an outpatient. Will hold on further intervention at this time. ? Will follow-up with PCP within 1 week. #Type 2 diabetes - A1c 7.5 2 weeks ago. Sugars stable during admission. - Continue metformin 500 mg twice daily. - Nutrition counseling patient on dietary adjustments for diabetes. Hypokalemia: Repleted with oral potassium. Currently 4.8. Hyponatremia: 125 on admission, improved to 133 this morning. Possibly from hydrochlorothiazide which has been discontinued as above. Hypomagnesemia: Stable at 1.7 today. Exam Data for Last 24 hours Vital signs and Labs for Last 24 Hours: Temp Pulse Resp BP Pulse Ox O2 Del Method 97.7 F 93 H 19 120/58 L 100 Room Air 05/04/24 08:00 05/04/24 11:21 05/04/24 08:00 05/04/24 11:21 05/04/24 08:00 05/04/24 11:00 Laboratory Results - last 24 hr 05/03/24 15:50: Sodium 129 L, Potassium 5.2 H D, Chloride 100, Carbon Dioxide 22, Anion Gap 12.2, BUN 15, Creatinine 0.60, Estimated Creat Clear 96, Estimated GFR 103, Est GFR ( Amer) 124, Glucose 138 H, Calcium 9.1 05/03/24 20:15: POC Glucose 139 H 05/04/24 05:10: POC Glucose 123 H 05/04/24 06:25: WBC 7.8, RBC 3.74 L, Hgb 11.0 L, Hct 32.7 L, MCV 87.4, MCH 29.4, MCHC 33.6, RDW 11.5, Plt Count 465 H, MPV 8.8, Neut % (Auto) 52.4, Lymph % (Auto) 33.1, [place] % (Auto) 10.6 H, Eos % (Auto) 2.9, Baso % (Auto) 0.5, Neut # (Auto) 4.1, Lymph # (Auto) 2.6, [place] # (Auto) 0.8, Eos # (Auto) 0.2, Baso # (Auto) 0.0, Sodium 133 L, Potassium 4.8, Chloride 102, Carbon Dioxide 23, Anion Gap 12.8, BUN 13, Creatinine 0.60, Estimated Creat Clear 100, Estimated GFR 103, Est GFR ( Amer) 124, Glucose 137 H, Calcium 9.6, Magnesium 1.7 D, Total Bilirubin 0.5, AST 23 D, ALT 25, Alkaline Phosphatase 115, Total Protein 6.8, Albumin 3.5, Globulin 3.3 H, Albumin/Globulin Ratio 1.1 05/04/24 10:18: POC Glucose 136 H I & O for Last 24 hours: Intake & Output 05/01/24 05/02/24 05/03/24 05/04/24 23:59 23:59 23:59 23:59 Intake Total 151 / 0 2240 / 2240 270 / 270 Output Total 0 / 0 0 / 0 0 / 0 Balance [id number] 2240 / 2240 270 / 270 Weight 58.06 kg 59.738 kg 61.689 kg Constitutional Constitutional: no acute distress *Routine HEENT Exam Head: Present normocephalic Eye: Present EOMI and PERRL ENT: Present mucous membranes moist *Routine Neck Exam Neck: Present supple; Absent lymphadenopathy *Routine Respiratory Exam Respiratory: Present CTA bilaterally *Routine Cardiovascular Exam Cardiovascular: Present RRR *Routine Abdominal Exam Abdominal: Present soft and normoactive bowel sounds; Absent tenderness *Routine Extremities Exam Extremities: Absent cyanosis, clubbing or edema *Routine Skin Exam Skin: Present warm; Absent rash *Routine Neurological Exam Neurological: Present alert and oriented X3 Results Data Completed and Pending Labs on day of discharge: Labs from last 24 hours 05/04/24 05/04/24 05/04/24 10:18 06:25 05:10 WBC 7.8 RBC 3.74 L Hgb 11.0 L Hct 32.7 L MCV 87.4 MCH 29.4 MCHC 33.6 RDW 11.5 Plt Count 465 H MPV 8.8 Neut % (Auto) 52.4 Lymph % (Auto) 33.1 [place] % (Auto) 10.6 H Eos % (Auto) 2.9 Baso % (Auto) 0.5 Neut # (Auto) 4.1 Lymph # (Auto) 2.6 [place] # (Auto) 0.8 Eos # (Auto) 0.2 Baso # (Auto) 0.0 Sodium 133 L Potassium 4.8 Chloride 102 Carbon Dioxide 23 Anion Gap 12.8 BUN 13 Creatinine 0.60 Estimated Creat Clear 100 Estimated GFR 103 Est GFR ( Amer) 124 Glucose 137 H POC Glucose 136 H 123 H Calcium 9.6 Magnesium 1.7 D Total Bilirubin 0.5 AST 23 D ALT 25 Alkaline Phosphatase 115 Total Protein 6.8 Albumin 3.5 Globulin 3.3 H Albumin/Globulin Ratio 1.1 05/03/24 05/03/24 20:15 15:50 WBC RBC Hgb Hct MCV MCH MCHC RDW Plt Count MPV Neut % (Auto) Lymph % (Auto) [place] % (Auto) Eos % (Auto) Baso % (Auto) Neut # (Auto) Lymph # (Auto) [place] # (Auto) Eos # (Auto) Baso # (Auto) Sodium 129 L Potassium 5.2 H D Chloride 100 Carbon Dioxide 22 Anion Gap 12.2 BUN 15 Creatinine 0.60 Estimated Creat Clear 96 Estimated GFR 103 Est GFR ( Amer) 124 Glucose 138 H POC Glucose 139 H Calcium 9.1 Magnesium Total Bilirubin AST ALT Alkaline Phosphatase Total Protein Albumin Globulin Albumin/Globulin Ratio DS: Diagnosis Discharge Diagnosis (1) Orthostatic hypotension: Status: Acute Code(s): I95.1 - Orthostatic hypotension (2) Hypokalemia: Status: Acute Code(s): E87.6 - Hypokalemia (3) Hyponatremia: Status: Acute Code(s): E87.1 - Hypo-osmolality and hyponatremia (4) Therapeutic misadventure: Status: Acute Code(s): Y69 - Unspecified misadventure during surgical and medical care (5) Newly diagnosed diabetes: Status: Acute Code(s): E11.9 - Type 2 diabetes mellitus without complications (6) Hypertension: Status: Acute Code(s): I10 - Essential (primary) hypertension (7) COPD (chronic obstructive pulmonary disease): Status: Acute Code(s): J44.9 - Chronic obstructive pulmonary disease, unspecified Meds Home Medications and Allergies Home Medications ?Medication ?Instructions ?Recorded ?Confirmed ?Type metformin 500 mg tablet 500 mg PO BID #60 tabs 04/21/24 05/03/24 Rx carvedilol 3.125 mg tablet 3.125 mg PO BID 30 days #60 tabs 01/01/25 Rx New Prescriptions to Start Prescriptions: carvedilol Valeriano Barnes Allergies Allergy/AdvReac Type Severity Reaction Status Date / Time sumatriptan (From Imitrex) Allergy Intermediate Stiffness Verified 04/19/24 22:39 ibuprofen AdvReac Intermediate Vomiting Verified 04/19/24 22:39 wheat AdvReac Unknown Verified 04/19/24 22:39 allergy reaction Discharge Plan Disposition Patient Disposition: Home, Self-Care Condition: Fair Follow up Plan Follow up with: Marj Cox APRN [Primary Care Provider] - 05/09/24 4:00 pm (in [facility] ) Prescriptions/Medication Reconciliation: New carvedilol 3.125 mg Tablet 3.125 mg PO BID 30 Days Qty: 60 0RF Continued metformin 500 mg tablet 500 mg PO BID Qty: 60 0RF Discontinued carvedilol 6.25 mg Tablet 6.25 mg PO BID 30 Days Qty: 60 0RF hydrochlorothiazide 25 mg Tablet 25 mg PO DAILY 30 Days Qty: 30 0RF irbesartan 150 mg Tablet 150 mg PO DAILY 30 Days Qty: 30 0RF Problem Reconciliation Problems Reviewed?: Yes Patient Discharge Instructions Patient Instructions: Orthostatic Hypotension, Hyponatremia-Adult, Hypokalemia Print Language: Ukrainian Providers Primary Care Provider: Marj Cox Admit Provider: Clint Hammer Attending Provider: Clint Hammer
[2024-05-04 13:29] VITALS: BP 144/81; BP 149/79; BP 152/77; PULSE 76; PULSE 78; PULSE 85
--- NOTE | 2024-05-05 10:56 | SW/DCPLANNER ---
Spoke with patient on the phone. Patient stated that she is doing well. Patient stated that she is aware of her upcoming appointment and was able to get her medicine picked up at [facility]. Patient stated that she has no concerns or questions at this time. Wilmer Torres
== END 2024-05-04 14:23 | disposition home or self-care (01) ==
LOC: ER 15:21 → 2ND 16:01
PROVIDERS: Physician Assistant; Admitting Provider Internal Medicine Adolescent Medicine; Emergency Provider Student in an Organized Health Care Education/Training Program; PCP Nurse Practitioner Family; Visit Provider Internal Medicine Adolescent Medicine
DX: I95.1 Orthostatic hypotension (principal); E87.1 Hypo-osmolality and hyponatremia; E83.42 Hypomagnesemia; R42 Dizziness and giddiness; J44.9 Chronic obstructive pulmonary disease, unspecified; E11.9 Type 2 diabetes mellitus without complications; T88.8XXA Other specified complications of surgical and medical care, not elsewhere classified, initial encounter; T50.2X4A Poisoning by carbonic-anhydrase inhibitors, benzothiadiazides and other diuretics, undetermined, initial encounter; T46.5X4A Poisoning by other antihypertensive drugs, undetermined, initial encounter; Z79.84 Long term (current) use of oral hypoglycemic drugs; F17.210 Nicotine dependence, cigarettes, uncomplicated
CPT/HCPCS: 36415; 71045; 80048; 80053; 81001; 82803; 82962; 83605; 83735; 84484; 85025; 86803; 87389; 93005; 99285; G0378; J1650; J3475; J7030; J7120

== ENCOUNTER 2024-05-07 18:27 | Emergency (ER) | payer MEDICAID, SELFPAY ==
[2024-05-07 18:28] VITALS: BP 191/116; PULSE 101; RESP 19; TEMP 36.6; O2SAT 98; BMI 19.6
--- NOTE | 2024-05-07 18:31 | PC.NURSE ---
Glucose obtained at 1831 and was 245.
--- NOTE | 2024-05-07 18:38 | ECG_ITS ---
APPROVED REPORT Exam: Resting ECG HR:105 bpm ECG Measurements Heart Rate 105 AXES MS 156 P 47 QRSd 94 QRS 73 QT 322 T 67 QTc 383 Conclusion SINUS TACHYCARDIA MODERATE ST DEPRESSION [0.05+ mV ST DEPRESSION] ABNORMAL ECG UNCONFIRMED REPORT Electronically signed by : ALEXANDER IGNACIO, 05/08/2024 06:49:19
--- NOTE | 2024-05-07 18:38 | XR_ITS ---
PROCEDURE INFORMATION: Exam: XR Chest Exam date and time: 05/07/2024 6:48 PM Age: 58 years old Clinical indication: Shortness of breath; Additional info: briseida HARMON TECHNIQUE: Imaging protocol: Radiologic exam of the chest. Views: 2 views. COMPARISON: CR XR CHEST PORTABLE 05/02/2024 2:13 PM FINDINGS: Lungs: Unremarkable. No consolidation. Pleural spaces: Unremarkable. No pleural effusion. No pneumothorax. Heart/Mediastinum: Unremarkable. No cardiomegaly. Bones/joints: Unremarkable. IMPRESSION: Stable chest x-ray with no acute disease.
[2024-05-07 18:46] LABS: Basophils % 0.5 % (0.1-2.0); Eosinophils # 0.2 K/mm3 (0.0-0.4); Eosinophils % 2.5 % (0.1-12.0); Hematocrit 36.4 % (37.0-47.0); Hemoglobin 12.2 g/dL (12.2-16.2); Lymphocytes # 2.2 K/mm3 (0.7-4.5); Lymphocytes % 29.8 % (10-50); Mean Corpuscular HGB Conc 33.5 g/dL (31.8-35.4); Mean Corpuscular Hemoglobin 28.9 pg (27.0-31.2); Mean Corpuscular Volume 86.3 fl (81-99); Mean Platelet Volume 8.6 fl (7.4-10.4); Monocytes # 0.4 K/mm3 (0.1-1.0); Monocytes % 4.9 % (1.7-9.3); Neutrophils # 4.5 K/mm3 (1.8-7.8); Neutrophils % 61.8 % (37.0-80.0); Platelet Count 522 K/mm3 (142-424); Red Blood Count 4.22 M/mm3 (4.20-5.40); Red Cell Distribution Width 11.3 % (11.5-17.5); White Blood Count 7.3 K/mm3 (4.8-10.8)
[2024-05-07 18:48] LABS: Albumin Level 4.2 g/dl (3.5-5.0); Chloride 101 mmol/L (98-107); Sodium 137 mmol/L (136-145)
[2024-05-07 18:49] LABS: Potassium 3.9 mmoL/L (3.5-5.1)
[2024-05-07 18:51] LABS: Alanine Aminotransferase 36 U/L (12-78); Aspartate Amino Transferase 34 U/L (14-36); Blood Urea Nitrogen 11 mg/dl (7-17); Creatinine Clearance Estimated 97 mL/min (50-200); Estimated Glomerular Filt Rate 103 ml/min (>60); GFR (African American) 124 ML/MIN (>60)
[2024-05-07 18:52] LABS: Albumin/Globulin Ratio 1.2 (1.1-1.8); Alkaline Phosphatase 163 U/L (38-126); Anion Gap 17.9 mEq/L (5-15); Bilirubin,Total 0.4 mg/dl (0.2-1.3); Calcium 9.9 mg/dl (8.4-10.2); Carbon Dioxide 22 mmol/L (22.0-30.0); Globulin 3.6 g/dL (1.3-3.2); Glucose 260 mg/dl (74-100); Total Protein,Serum 7.8 g/dl (6.3-8.2)
[2024-05-07 18:57] LABS: D-Dimer 0.74 ug/mL (0.0-0.5)
[2024-05-07 19:06] LABS: Troponin I < 0.01 ng/ml (0.00-0.034)
--- NOTE | 2024-05-07 19:08 | ED_ITS ---
<Statement entered by Rik Dong MD - 05/08/24 00:07> CAMILLE Attestation I was consulted by the CAMILEL, and we discussed the complexity of problems being addressed. I approved the treatment and management plan for this patient's care in the emergency department, thus performing a substantial portion of the medical decision making. Rik Dong MD Discharge Plan Disposition Patient Disposition: Home, Self-Care Condition: Good Chief Complaint: Chest Pain Prescriptions Prescriptions: No Action carvedilol 3.125 mg Tablet 3.125 mg PO BID 30 Days Qty: 60 0RF metformin 500 mg tablet 500 mg PO BID Qty: 60 0RF Referrals Follow up/Referrals: Marj Cox APRN [Primary Care Provider] - See instructions Activity Restrictions/Add. Instructions Additional Instructions/Restrictions: Follow-up with PCP If symptoms worsen to return return to be seen in the ER Tylenol or ibuprofen as needed Clinical Impressions Clinical Impression: Hand tingling, Dizziness Instructions Patient Instructions: DI for Numbness/Tingling, Dizziness, Nonvertigo Print Language Print Language: Montserratian Discharge ED Provider: Rik Dong General Chief Complaint: Chest Pain Stated Complaint: chest pain Time Seen by Provider: 05/07/24 18:38 Mode of Arrival: Ambulatory Source of Information: Patient Limitations: No Limitations Description of Symptoms (Recalled from ER Triage Doc. by RN): pt presents to ED with c/o chest twinges that began today. pt reports left sided shoulder pain associated with these twinges. pt reports those symptoms began today. pt reports dizziness ongoing for the past few weeks. pt reports headache that began today. pt reports intermittent back pain as well. History of Present Illness HPI narrative: 58-year-old female presents for complaints of chest twinges that began today. Patient also reports left chest pain that comes and goes the last 1 lasting about an hour. Patient states she also was having some dizziness that comes and goes and has been going on for couple of weeks. Patient states she has recent hospitalization due to pneumonia. Patient states she has a history of anxiety and thinks this might have something to do with it. Related Data Previous Rx's ?Medication ?Instructions ?Recorded metformin 500 mg tablet 500 mg PO BID #60 tabs 04/21/24 carvedilol 3.125 mg tablet 3.125 mg PO BID 30 days #60 tabs 05/04/24 Allergies Allergy/AdvReac Type Severity Reaction Status Date / Time sumatriptan (From Imitrex) Allergy Intermediate Stiffness Verified 04/19/24 22:39 ibuprofen AdvReac Intermediate Vomiting Verified 04/19/24 22:39 wheat AdvReac Unknown Verified 04/19/24 22:[address] [facility] Disclaimer: The information contained in this section may have been updated after the patient was seen, as this information can be updated by other users. Medical History Systemic inflammatory response syndrome Gastroenteritis Acute hyperglycemia Hypokalemia Sepsis Nausea & vomiting Vomiting COPD (chronic obstructive pulmonary disease) Surgical History , TAFFY PULLER) History of hysterectomy Family History , TAFFY PULLER) No significant family history Social History , TAFFY PULLER) Smoking Status: Current every day smoker alcohol intake: never substance use type: marijuana current occupational status: disabled Travel in the last 8 weeks: None Have you lived/traveled outside [place] in past 30 days?: No Contact w/someone who lives/traveled outside US past 30 days?: No Exposure to someone with infectious disease in past 14 days?: No Do you have a fever (greater than 100.4 F or 38 C)?: No Have you tested positive for COVID-19: No Exposed to someone with COVID-19 in past 14 days?: No Do you have a sore throat?: No Do you have a cough?: No Do you have any weakness?: No Do you have any diarrhea?: No Are you experiencing any unusual bleeding?: No Do you have any muscle aches/pain?: No Do you have any abdominal pain?: No Are you experiencing loss of taste or smell?: No Other Medical History Have you received the Flu Vaccine for this season: No Have you received the Pneumonia Vaccine: No ROS Obtained: Yes Systems reviewed as appropriate & no additional complaints except as documented Physical Exam General General appearance: alert and in no apparent distress Head Head exam: atraumatic Eye Eye exam: Present normal appearance ENT ENT exam: Present normal exam Chest Chest inspection: Present normal inspection and symmetric chest wall rise Respiratory Respiratory exam: Present normal lung sounds bilaterally Cardiovascular Cardiovascular exam: Present regular rate and normal rhythm Abdominal Exam Abdominal exam: Present soft and normal bowel sounds Neurological Exam Neurological exam: Present alert, oriented X3, CN II-XII intact and normal gait Psychiatric Psychiatric exam: Present normal affect Skin Skin exam: Present warm and intact HEART Score HEART Score HEART Score assessment performed?: Yes History (anamnesis): Slightly suspicious ECG: Normal Age: 45-65 years Risk factors: No known risk factors Troponin: </= normal limit HEART Score: 1 Critical Care Critical Care Time Critical Care Time: No Medical Decision Making Attila Inquiry Pt receiving controlled substance: No Vital Signs Vital Signs: 05/07/24 18:28 Temperature 97.9 F Temperature Source Oral Pulse Rate [Left Radial] 101 H Respiratory Rate 19 Blood Pressure [Right Arm] 191/116 H Blood Pressure Mean [Right Arm] 141 02 Sat by Pulse Oximetry 98 Oxygen Delivery Method Room Air Lab Data Labs: Lab Results 05/07/24 18:30: WBC 7.3, RBC 4.22, Hgb 12.2, Hct 36.4 L, MCV 86.3, MCH 28.9, MCHC 33.5, RDW 11.3 L, Plt Count 522 H, MPV 8.6, Neut % (Auto) 61.8, Lymph % (Auto) 29.8, [place] % (Auto) 4.9, Eos % (Auto) 2.5, Baso % (Auto) 0.5, Neut # (Auto) 4.5, Lymph # (Auto) 2.2, [place] # (Auto) 0.4, Eos # (Auto) 0.2, Baso # (Auto) 0.0, D-Dimer 0.74 H, Sodium 137, Potassium 3.9, Chloride 101, Carbon Dioxide 22, Anion Gap 17.9 H, BUN 11, Creatinine 0.60, Estimated Creat Clear 97, Estimated GFR 103, Est GFR ( Amer) 124, Glucose 260 H, Calcium 9.9, Total Bilirubin 0.4, AST 34, ALT 36, Alkaline Phosphatase 163 H, Troponin I < 0.01, Total Protein 7.8, Albumin 4.2, Globulin 3.6 H, Albumin/Globulin Ratio 1.2, HIV Ag/Ab Combo Qual Negative 05/07/24 18:30 05/07/24 18:30 Response Orders (Tests/Meds): ED MEDICATIONS Generic Name Dose Route Start Last Admin Trade Name Freq PRN Reason Stop Dose Admin Alprazolam 0.25 mg 05/07/24 19:26 05/07/24 20:46 Alprazolam 0.25mg Tablet PO 06/06/24 19:25 0.25 mg NEEDED PRN Administration anxiety Sodium Chloride 10 ml 05/07/24 19:39 05/07/24 19:40 Sodium Chloride 0.9% 10ml Syr (Rad Only) IV 06/06/24 19:38 10 ml NEEDED PRN Administration Maintain IV Site Discontinued Medications Generic Name Dose Route Start Last Admin Trade Name Freq PRN Reason Stop Dose Admin Iopamidol 70 ml 05/07/24 19:39 05/07/24 19:40 Iopamidol-370 (76%);100ml Bottle IV 05/07/24 19:40 70 ml ONCE ONE Administration Sodium Chloride 50 ml 05/07/24 19:39 05/07/24 19:40 0.9 % Sodium Chloride 50 Ml Vial IV 05/07/24 19:40 50 ml ONCE ONE Administration ORDERS Category Date Time Status CT angio chest PE protocol Stat Cat Scan 05/07/24 19:15 Completed Chest XR 2 view (NOT portable) [XR chest 2V] Stat Exams 05/07/24 18:38 Completed CBC w/Auto Diff [Complete Blood Count Auto Diff] Stat Lab 05/07/24 18:30 Completed CMP [Comprehensive Metabolic Panel] Stat Lab 05/07/24 18:30 Completed D-Dimer Stat Lab 05/07/24 18:30 Completed HIV Combo Routine Lab 05/07/24 18:30 Completed Trop I [Troponin I] Stat Lab 05/07/24 18:30 Completed Troponin I Q3H Lab 05/07/24 21:45 Ordered Troponin I Q3H Lab 05/08/24 00:45 Ordered EKG Request [ECG Request] Stat Y 05/07/24 18:38 Ordered MDM Narrative Medical Decision Narrative: In summary patient is a 58-year-old female who presents to the emergency department for evaluation of chest pain, dizziness been going on for a few weeks, headache, numbness that comes and goes to hands and fingers for few weeks now. Patient is hemodynamically stable upon arrival, afebrile. Unremarkable physical exam. Differential diagnosis includes pneumonia, PE, anxiety. Initial workup will be conducted with labs, D-dimer was elevated so CT rule out PE due to recent hospitalization and decrease in activity, and cardiac workup. Initial inventions include labs, CT chest rule out PE, low-dose Xanax given for anxiety. Initial workup reviewed by me labs unremarkable. Upon repeat evaluation patient resting comfortably in bed states that the anxiety medicine has helped all of her symptoms. Patient states she is ready to go home.. Given this patient appropriate for discharge will discharge home with close follow-up with PCP. I informally interpreted patient's chest [id number] chest x-ray with no acute disease. CT :No evident PE. No other acute findings. Documented with director cardiac normal sinus rhythm with a rate of 98 2111
--- NOTE | 2024-05-07 19:15 | CT_ITS ---
PROCEDURE INFORMATION: Exam: CTA Chest With Contrast Exam date and time: 05/07/2024 7:34 PM Age: 58 years old Clinical indication: Shortness of breath; Additional info: Elevated d dimer TECHNIQUE: Imaging protocol: Computed tomographic angiography of the chest with contrast. Exam focused on the arteries. 3D rendering (Not supervised by radiologist): MIP and/or 3D reconstructed images were created by the technologist. Radiation optimization: All CT scans at this facility use at least one of these dose optimization techniques: automated exposure control; mA and/or kV adjustment per patient size (includes targeted exams where dose is matched to clinical indication); or iterative reconstruction. Contrast material: ISOVUE; Contrast volume: 70 ml; Contrast route: INTRAVENOUS (IV); COMPARISON: CT ANGIO CHEST PE PROTOCOL 04/19/2024 7:09 PM FINDINGS: Pulmonary arteries: Normal. No pulmonary emboli. Aorta: Unremarkable. No aortic aneurysm. No aortic dissection. Lungs: Emphysematous changes again noted. Interval resolution of the previously noted bibasilar infiltrates. Lungs are otherwise clear. Pleural spaces: Unremarkable. No pneumothorax. No pleural effusion. Heart: Unremarkable. No cardiomegaly. No pericardial effusion. Lymph nodes: Unremarkable. No enlarged lymph nodes. Bones/joints: Unremarkable. No acute fracture. Soft tissues: Benign-appearing fluid density lesions compatible with cysts in the partially included left kidney. No follow-up advised. IMPRESSION: No evident PE. No other acute findings. COMMENTS: The presence of pulmonary emphysema on CT is an independent risk factor for lung cancer. In the absence of a history or active diagnosis of lung cancer, it is recommended that this patient with emphysema be evaluated for enrollment in a low dose CT lung cancer screening program.
[2024-05-07] MEDS: IOPAMIDOL-370 (76%);100ML BOTTLE 70 ML IV (19:40)
[2024-05-07] MEDS: SODIUM CHLORIDE 0.9% 10ML SYR (RAD ONLY) 10 ML IV (19:40)
[2024-05-07] MEDS: 0.9 % SODIUM CHLORIDE 50 ML VIAL IV (19:40)
[2024-05-07] MEDS: ALPRAZolam 0.25MG TABLET 0.25 MG PO (20:46)
[2024-05-07 20:57] LABS: HIV Combo NEGATIVE (Negative)
[2024-05-07 21:36] VITALS: BP 163/90; PULSE 88; RESP 15; TEMP 37; O2SAT 100
== END 2024-05-07 21:42 | disposition home or self-care (01) ==
PROVIDERS: Nurse Practitioner Family; Emergency Provider Student in an Organized Health Care Education/Training Program; PCP Nurse Practitioner Family
DX: R20.2 Paresthesia of skin (principal); R07.9 Chest pain, unspecified; M25.512 Pain in left shoulder; R42 Dizziness and giddiness; R51.9 Headache, unspecified; M54.9 Dorsalgia, unspecified
CPT/HCPCS: 71046; 71275; 80053; 84484; 85025; 85378; 87389; 93005; 99285; Q9967

== ENCOUNTER 2024-06-02 06:44 | Outpatient (CLI) | payer MEDICAID, SELFPAY ==
--- NOTE | 2024-06-02 | CA_ITS ---
APPROVED REPORT Exam: Pharmacologic Ht: 5 ft 9 in Wt: 135 lbs BSA: 1.75 m2 Stress Test Details Test: Lexiscan Reason for pharmacologic stress test: physical limitation. HR Resting HR: 72 bpm Max Heart Rate (APMHR): 162.794153 bpm Max HR Achieved: 114 bpm Target HR (85% APMHR): 137.066390 bpm % of APMHR: 70.37 Recovery HR: 100 bpm BP Resting BP: 182.0/88.0 mmHg Max BP: 209.0/106.0 mmHg Recovery BP: 189.0/95.0 mmHg ECG Resting ECG: NSR Stress ECG Conclusion Symptoms: None. Arrhythmias/Ectopy: None. ST-T Changes: <1.5mm ST Segment changes. Conclusion: Non-Diagnostic Lexiscan stress test. Electronically signed by : Angelica Saldaña MD 06/03/2024 00:15:42
--- NOTE | 2024-06-02 06:48 | NM_ITS ---
APPROVED REPORT Exam: Nuclear Stress Test Indication: fatigue..dizziness Patient Location: Outpatient Stress Tech: Joy Priest DC Tech:AN Ozuna RT(R)(N) Ht: 5 ft 9 in Wt: 135 lbs Bra Size: 34c HR: 72 bpm BP: 182/88 mmHg BSA: 1.75 m2 TID: 1.05 BMI: 19.9 History: fatigue..dizziness Procedure: Patient received 0.4 mg of intravenous Lexiscan, resting heart rate 72 bpm, resting blood pressure 182/88 mmHg, with Lexiscan maximum heart rate achieved was 116 bpm which is 85 % of the maximum predicted heart rate and blood pressure was 209/106 mmHg. With Lexiscan, patient denied any complaint of chest pain. Cardiac Stress and Resting SPECT Images: Cardiac Stress and Resting SPECT images were obtained using technetium 99m Myoview 31.6 mCi stress and 10.38 mCi at rest. Resting and stress imaging in supine and prone positions demonstrate a small sized, moderate, reversible perfusion defect in the basal septal LV wall. Gated imaging demonstrates normal global LV systolic function. There is mild hypokinesis of the basal septal LV wall. LVEF is calculated at 63%. Conclusion: Small sized, moderate, reversible perfusion defect in the basal septal LV wall. Findings are suggestive of reversible ischemia. Gated imaging demonstrates normal global LV systolic function. There is mild hypokinesis of the basal septal LV wall. LVEF is calculated at 63%. Electronically signed by : Angelica Saldaña MD 06/03/2024 00:06:54
[2024-06-02] MEDS: ISOTOPE MYOVIEW (PER STUDY) 1 DOSE IV (10:37)
[2024-06-02] MEDS: REGADENOSON 0.4MG/5ML SYRINGE 0.4 MG IV (10:37)
[2024-06-02] MEDS: SODIUM CHLORIDE 0.9% 10ML SYR (RAD ONLY) 10 ML IV ×2 (10:37)
== END 2024-06-02 23:59 | disposition home or self-care (01) ==
LOC: RAD 06:45
PROVIDERS: PCP Nurse Practitioner Family; Visit Provider Nurse Practitioner
DX: R06.00 Dyspnea, unspecified (principal); R93.1 Abnormal findings on diagnostic imaging of heart and coronary circulation
CPT/HCPCS: 78452; 93017; 93018; A9502; J2785

== ENCOUNTER 2024-06-07 10:19 | Outpatient (CLI) | payer MEDICAID, SELFPAY ==
[2024-06-07 10:31] LABS: Basophils # 0.1 K/mm3 (0-0.2); Basophils % 1.2 % (0.1-2.0); Eosinophils # 0.7 K/mm3 (0.0-0.4); Eosinophils % 11.4 % (0.1-12.0); Hematocrit 42.3 % (37.0-47.0); Hemoglobin 13.9 g/dL (12.2-16.2); Lymphocytes # 2.2 K/mm3 (0.7-4.5); Lymphocytes % 35.9 % (10-50); Mean Corpuscular HGB Conc 32.9 g/dL (31.8-35.4); Mean Corpuscular Hemoglobin 28.7 pg (27.0-31.2); Mean Corpuscular Volume 87.4 fl (81-99); Mean Platelet Volume 8.6 fl (7.4-10.4); Monocytes # 0.3 K/mm3 (0.1-1.0); Monocytes % 5.6 % (1.7-9.3); Neutrophils # 2.8 K/mm3 (1.8-7.8); Neutrophils % 45.6 % (37.0-80.0); Platelet Count 301 K/mm3 (142-424); Red Blood Count 4.84 M/mm3 (4.20-5.40); Red Cell Distribution Width 12.9 % (11.5-17.5); White Blood Count 6.1 K/mm3 (4.8-10.8)
[2024-06-07 10:57] LABS: Albumin Level 4.9 g/dl (3.5-5.0); Chloride 103 mmol/L (98-107); Potassium 4.2 mmoL/L (3.5-5.1); Sodium 141 mmol/L (136-145)
[2024-06-07 11:00] LABS: Alanine Aminotransferase 27 U/L (12-78); Alkaline Phosphatase 102 U/L (38-126); Anion Gap 16.2 mEq/L (5-15); Aspartate Amino Transferase 26 U/L (14-36); Bilirubin,Indirect 0.3 mg/dL (0.0-0.9); Bilirubin,Total 0.3 mg/dl (0.2-1.3); Bilirubin,Unconjugated 0.2 mg/dL (0.0-1.1); Blood Urea Nitrogen 21 mg/dl (7-17); Calcium 10.3 mg/dl (8.4-10.2); Carbon Dioxide 26 mmol/L (22.0-30.0); Cholesterol 270 mg/dl (140-200); Estimated Glomerular Filt Rate 103 ml/min (>60); GFR (African American) 124 ML/MIN (>60); Glucose 195 mg/dl (74-100); Total Protein,Serum 7.7 g/dl (6.3-8.2); Triglycerides 233 mg/dl (30-150); VLDL Cholesterol 47 mg/dL (0-40)
[2024-06-07 11:01] LABS: Chol/HDL Ratio 6.4 (1-3.5); HDL Cholesterol 42 mg/dl (40-60); Magnesium 2.1 mg/dl (1.6-2.3)
[2024-06-07 11:12] LABS: Direct LDL Cholesterol 169.03 mg/dL (100-129)
[2024-06-07 11:17] LABS: Free T4 (Free Thyroxine) 1.08 ng/dl (0.78-2.19)
== END 2024-06-07 23:59 | disposition home or self-care (01) ==
LOC: LAB 10:20
PROVIDERS: PCP Nurse Practitioner Family; Visit Provider Nurse Practitioner
DX: R93.1 Abnormal findings on diagnostic imaging of heart and coronary circulation (principal); I73.9 Peripheral vascular disease, unspecified; I10 Essential (primary) hypertension; I70.1 Atherosclerosis of renal artery; Z72.0 Tobacco use
CPT/HCPCS: 36415; 80048; 80061; 80076; 83735; 84439; 84443; 85025